=== PATIENT | female | born 1970 | race Asian ===

== ENCOUNTER 2022-02-26 22:19 | Emergency (ER) | payer MEDICAID, OTHER, SELFPAY ==
[2022-02-26 22:30] VITALS: BP 149/64; PULSE 76; RESP 18; TEMP 36.6; O2SAT 97; BMI 41.1
[2022-02-26 22:59] LABS: MANUAL DIFF FLAG NO
[2022-02-26 23:02] LABS: Basophils Percent Auto 0.2 % (0-2); Eosinophils Absolute Auto 0.2 X10*3/uL (0.0-0.4); Eosinophils Percent Auto 1.5 % (0-4); Hemoglobin 10.5 g/dl (12.0-16.0); Imm Gran Abs Auto 0.06 X10*3/uL (0.00-0.03); Imm Gran Pct Auto 0.5 % (0.0-0.4); Lymphocytes Absolute Auto 4.5 X10*3/uL (1.2-4.9); Lymphocytes Percent Auto 36.3 % (20-40); Mean Corpuscular HGB Conc 30.9 g/dl (31.0-35.0); Mean Corpuscular Hemoglobin 24.6 pg (27.0-33.0); Mean Corpuscular Volume 79.6 fL (80.0-98.0); Mean Platelet Volume 10.9 fL (9.4-12.3); Monocytes Absolute Auto 0.7 X10*3/uL (0.1-1.2); Neutrophils Absolute Auto 6.8 x10*3/uL (2.0-8.3); Neutrophils Percent Auto 55.5 % (45-73); Platelet Count 276 X10*3/uL (160-400); Red Blood Count 4.27 X10*6/uL (4.20-5.50); White Blood Count 12.3 X10*3/uL (4.8-10.8)
[2022-02-26 23:11] LABS: Appearance Urine Clear; Color Urine Yellow; Glucose Urine UA >=1000 mg/dL (Negative); Leukocyte Esterase Urine Negative (Negative); Nitrite Urine Negative (Negative); Specific Gravity - Urine 1.025 (1.005-1.025); UMIC TRIGGER UACC YES; Urine Blood Negative (Negative); Urine Ketones Negative (Negative); Urine Protein Negative (Neg-Trace)
[2022-02-26 23:14] LABS: Bacteria Urine None Seen (None Seen); Hyaline Casts Urine 0-2 /LPF (0-2); RBC Urine 0-2 /HPF (0-2); Squamous Epithelial Cell Urine 0-2 /HPF (0-2); WBC Urine 0-5 /HPF (0-5)
[2022-02-26 23:17] LABS: UPreg QC Valid YES; Urine Pregnancy NEGATIVE (NEGATIVE)
--- NOTE | 2022-02-27 00:25 | ED_ITS ---
HPI - Female Genitourinary General Chief complaint: Urogenital-Female Stated complaint: fever, urinating frequently, vomit, pain in arm/le Time Seen by Provider: 02/27/22 00:07 Source: family (Son) Mode of arrival: ambulatory Limitations: no limitations History of Present Illness HPI Narrative: Patient comes to the emergency room complaining of urinary frequency. Patient moved from [facility] 1 month ago, her Maltese is very limited, request her son interprets. The son explains that the patient has had urinary frequency for 2 weeks. Patient has not seen any blood in the urine. Patient also complaining of a painful, numbness sensation in her fingers and toes. Patient has history of diabetes. According to the son, the patient brought all of her medications from [facility] and has enough until she is seen by her primary care physician in 1 month. Also, patient complaining that for the last week she has been unable to sleep, and does not feel well constantly from being up all night Related Data Previous Rx's Medication Instructions Recorded gabapentin 100 mg capsule 100 mg PO BID #60 caps 02/27/22 ondansetron HCl 4 mg tablet 4 mg PO Q6H PRN nausea and 02/27/22 vomiting #14 tabs quetiapine 25 mg tablet 25 mg PO BEDTIME #14 tabs 02/27/22 Allergies Allergy/AdvReac Type Severity Reaction Status Date / Time No Known Allergies Allergy Verified 02/26/22 22:30 Review of Systems Review of Systems: Constitutional : No Weight loss, No Fever, No Chills, No Night Sweats, No Fatigue, No Malaise ENT/Mouth : No Hearing loss, No Ear Pain, No Nasal Congestion, No Sinus Pain, No Hoarseness, No sore throat, No Rhinorrhea, No Swallowing Difficulty Eyes: No Eye Pain, No Swelling, No Redness, No Foreign Body, No Discharge, No Vision Changes Cardiovascular : No Chest Pain, No SOB, No Dyspnea on Exertion, No Orthopnea, No Edema, No Palpitations Respiratory : No Cough, No Sputum, No Wheezing, No Smoke Exposure, No Dyspnea Gastrointestinal : No Nausea, No Vomiting, No Diarrhea, No Constipation, No abdominal Pain, No Hematochezia, No Melena Genitourinary : no irregular bleeding, No Dysuria, complaining of Urinary Frequency, No Hematuria, No Urinary Incontinence, No Urgency, No Flank Pain, No Urinary Flow Changes, No Hesitancy Musculoskeletal : No joint pain, No Myalgias, No Joint Swelling Skin : No Skin Lesions, No rash Neuro : No Weakness, No Numbness, complaining neuropathy in the tips of her fingers and toes, No Loss of Consciousness, No Dizziness, No Headache Psych : No Anxiety/Panic, No Depression, No SI/HI/AH/VH, No Social Issues, Heme/Lymph: No Bruising, No Bleeding,No Lymphadenopathy Endocrine : No Polyuria, No Polydipsia, No Temperature Intolerance FORMERLY [facility], [facility]–1983 Past Medical History Medical History (Updated 02/27/22 @ 01:43 by Candace Cabello MD) Type 2 diabetes mellitus Social History Social History Advance Directives: No Physical Exam Vital Signs: Vital Signs: Last Vital Signs Temp 98.4 F 02/27/22 01:02 Pulse 75 02/27/22 01:02 Resp 18 02/27/22 01:02 BP 149/65 H 02/27/22 01:02 Pulse Ox 100 02/27/22 01:02 O2 Del Method 02/27/22 01:02 BMI result Body Mass Index 41.1 Const: Other: Appearance: Alert. Oriented X3. No acute distress. Eyes: Pupils equal, round and reactive to light. ENT: Pharynx normal. Neck: Normal inspection. Neck supple. No lymph nodes noted. No crepitus CVS: Normal heart rate and rhythm. Pulses normal. Normal S1 and S2 Respiratory: No respiratory distress. Breath sounds normal. No Wheezing. No rales Abdomen: Soft and nontender. No rigidity. No distention. Skin: Skin warm and dry. Normal skin color. Normal skin turgor. Extremities: No lower extremity edema. No Lacerations. No Rash Neuro: Oriented X 3. No motor deficit. No sensory deficit. Moving all extremities. No slurred speech. CN 2 through 12 grossly intact Psych: calm, cooperative, normal affect Course Course Course Narrative: -patient is giving IV fluids, Zofran -glucose point of care and chemistry pending -patient's glucose is well controlled. According to the son, they have enough medications to last her until seen by her primary care physician. -patient will be given a prescription for gabapentin for neuropathy, Zofran for the vomiting, on a low-dose Medications Administered Discontinued Medications Generic Name Dose Route Start Last Admin Trade Name Freq PRN Reason Stop Dose Admin Sodium Chloride 1,000 mls @ 999 mls/hr 02/27/22 00:25 02/27/22 00:49 Ns IVCONT 02/27/22 01:25 999 mls/hr .Q1H1M ONE Administration Ondansetron HCl 4 mg 02/27/22 00:32 02/27/22 00:52 Ondansetron Hcl 4 Mg/2 Ml Vial IVPUSH 02/27/22 00:33 4 mg ONCE ONE Administration Medical Decision Making Differential Diagnosis Differential Diagnoses: The differential diagnosis associated with the presentation includes (Hyperglycemia, UTI) Lab Data [facility] Lab Attestation statement: I reviewed the patient's lab results. 02/26/22 22:54 Labs: Lab Results 02/26/22 02/26/22 02/26/22 Range/Units 22:51 22:51 22:54 WBC 12.3 H (4.8-10.8) X10*3/uL RBC 4.27 (4.20-5.50) X10*6/uL Hgb 10.5 L (12.0-16.0) g/dl Hct 34.0 L (37.0-47.0) % MCV 79.6 L (80.0-98.0) fL MCH 24.6 L (27.0-33.0) pg MCHC 30.9 L (31.0-35.0) g/dl RDW 15.0 (11.0-16.0) % Plt Count 276 (160-400) X10*3/uL MPV 10.9 (9.4-12.3) fL Immature Gran % (Auto) 0.5 H (0.0-0.4) % Neut % (Auto) 55.5 (45-73) % Lymph % (Auto) 36.3 (20-40) % Stark % (Auto) 6.0 (2-11) % Eos % (Auto) 1.5 (0-4) % Baso % (Auto) 0.2 (0-2) % Lymph # (Auto) 4.5 (1.2-4.9) X10*3/uL Stark # (Auto) 0.7 (0.1-1.2) X10*3/uL Eos # (Auto) 0.2 (0.0-0.4) X10*3/uL Baso # (Auto) 0.0 (0.0-0.2) X10*3/uL Abs Immat Gran (auto) 0.06 H (0.00-0.03) X10*3/uL Absolute Neuts (auto) 6.8 (2.0-8.3) x10*3/uL Absolute Nucleated RBC 0.000 (0.0-0.012) X10*3/uL Nucleated RBC % (auto) 0.0 (0.0-0.2) /100WBC Sodium (135-145) mmol/L Potassium (3.3-5.1) mmol/L Chloride (96-108) mmol/L Carbon Dioxide (22-29) mmol/L Anion Gap (12-20) BUN (9-16) mg/dL Creatinine (0.5-1.4) mg/dL Estim Creat Clear Calc Estimated GFR POC Glucose (60-115) mg/dL Random Glucose (60-115) mg/dL Calcium (8.4-10.2) mg/dL Urine Color Yellow Urine Appearance Clear Urine pH 6.0 (5.0-9.0) Ur Specific [place] 1.025 (1.005-1.025) Urine Protein Negative (Neg-Trace) mg/dL Urine Glucose (UA) >=1000 H (Negative) mg/dL Urine Ketones Negative (Negative) mg/dL Urine Blood Negative (Negative) Urine Nitrite Negative (Negative) Ur Leukocyte Esterase Negative (Negative) Urine RBC 0-2 (0-2) /HPF Urine WBC 0-5 (0-5) /HPF Ur Squamous Epith Cells 0-2 (0-2) /HPF Urine Bacteria None Seen (None Seen) Hyaline Casts 0-2 (0-2) /LPF Urine Test NEGATIVE (NEGATIVE) 02/27/22 02/27/22 Range/Units 00:46 00:54 WBC (4.8-10.8) X10*3/uL RBC (4.20-5.50) X10*6/uL Hgb (12.0-16.0) g/dl Hct (37.0-47.0) % MCV (80.0-98.0) fL MCH (27.0-33.0) pg MCHC (31.0-35.0) g/dl RDW (11.0-16.0) % Plt Count (160-400) X10*3/uL MPV (9.4-12.3) fL Immature Gran % (Auto) (0.0-0.4) % Neut % (Auto) (45-73) % Lymph % (Auto) (20-40) % Stark % (Auto) (2-11) % Eos % (Auto) (0-4) % Baso % (Auto) (0-2) % Lymph # (Auto) (1.2-4.9) X10*3/uL Stark # (Auto) (0.1-1.2) X10*3/uL Eos # (Auto) (0.0-0.4) X10*3/uL Baso # (Auto) (0.0-0.2) X10*3/uL Abs Immat Gran (auto) (0.00-0.03) X10*3/uL Absolute Neuts (auto) (2.0-8.3) x10*3/uL Absolute Nucleated RBC (0.0-0.012) X10*3/uL Nucleated RBC % (auto) (0.0-0.2) /100WBC Sodium 141 (135-145) mmol/L Potassium 4.0 (3.3-5.1) mmol/L Chloride 104 (96-108) mmol/L Carbon Dioxide 25 (22-29) mmol/L Anion Gap 16 (12-20) BUN 14 (9-16) mg/dL Creatinine 0.80 (0.5-1.4) mg/dL Estim Creat Clear Calc 68.9 Estimated GFR > 60 POC Glucose 102 (60-115) mg/dL Random Glucose 102 (60-115) mg/dL Calcium 10.3 H (8.4-10.2) mg/dL Urine Color Urine Appearance Urine pH (5.0-9.0) Ur Specific [place] (1.005-1.025) Urine Protein (Neg-Trace) mg/dL Urine Glucose (UA) (Negative) mg/dL Urine Ketones (Negative) mg/dL Urine Blood (Negative) Urine Nitrite (Negative) Ur Leukocyte Esterase (Negative) Urine RBC (0-2) /HPF Urine WBC (0-5) /HPF Ur Squamous Epith Cells (0-2) /HPF Urine Bacteria (None Seen) Hyaline Casts (0-2) /LPF Urine Test (NEGATIVE) Discharge Plan Discharge Clinical Impression: Frequent urination, Insomnia, Nausea & vomiting, Neuropathy Patient Disposition: Home, Self-Care Instructions: Acute Nausea and Vomiting (ED), Insomnia (ED) Additional Instructions: Please follow-up with your primary care physician tomorrow. If you have any worsening or new symptoms, please return to the emergency room or call 911 Prescriptions: New ondansetron HCl 4 mg tablet 4 mg PO Q6H PRN (Reason: nausea and vomiting) Qty: 14 0RF gabapentin 100 mg capsule 100 mg PO BID Qty: 60 0RF quetiapine 25 mg tablet 25 mg PO BEDTIME Qty: 14 0RF
[2022-02-27] MEDS: 0.9 % Sodium Chloride 1,000 ML 999 ML IVCONT (00:49)
[2022-02-27] MEDS: ondansetron HCL 4 MG/2 ML VIAL IVPUSH (00:52)
[2022-02-27 00:59] LABS: Glucose, Whole Blood 102 mg/dL (60-115)
[2022-02-27 01:02] VITALS: BP 149/65; PULSE 75; RESP 18; TEMP 36.9; O2SAT 100
[2022-02-27 01:08] LABS: Anion Gap 16 (12-20); Blood Urea Nitrogen 14 mg/dL (9-16); Calcium 10.3 mg/dL (8.4-10.2); Carbon Dioxide 25 mmol/L (22-29); Chloride 104 mmol/L (96-108); Creatinine Clr Calc Pharmacy 68.9; Estimated Glomerular Filt Rate > 60; Glucose Random 102 mg/dL (60-115); Sodium 141 mmol/L (135-145)
== END 2022-02-27 02:22 | disposition home or self-care (01) ==
PROVIDERS: Emergency Provider Emergency Medicine; PCP Internal Medicine
DX: R50.9 Fever, unspecified (principal); R35.0 Frequency of micturition; G47.00 Insomnia, unspecified; G62.9 Polyneuropathy, unspecified; R11.2 Nausea with vomiting, unspecified; Z79.899 Other long term (current) drug therapy
CPT/HCPCS: 36415; 80048; 81001; 81003; 81025; 82947; 85025; 96374; 99283; 99284; J2405

== ENCOUNTER 2022-03-18 20:32 | Emergency (ER) | payer OTHER, SELFPAY ==
--- NOTE | ~2022-03-18 | CT_ITS ---
EXAMINATION: CT ABDOMEN AND PELVIS WITH CONTRAST CLINICAL INFORMATION: Nausea, vomiting, diarrhea COMPARISON: None TECHNIQUE: Multidetector volumetric images were obtained from the superior aspect of the liver through the pubic symphysis following administration 85 mL of Omnipaque 350 intravenous contrast. Sagittal and coronal reformatted images were obtained on the technologist's workstation. Oral contrast: No This CT examination was performed using dose optimization techniques as appropriate, variously including the following: *Automated exposure control *Adjustment of mA and/or kV according to patient size (this includes techniques or standardized protocols for targeted exams where dose is matched to indication/reason for exam; i.e. extremities or head) *Use of iterative reconstruction technique DLP: 608 mGy-cm FINDINGS: LUNG BASES: The visualized lung bases are unremarkable. LIVER, GALLBLADDER, AND BILIARY TREE: The liver is mildly enlarged. No focal hepatic lesion or biliary ductal dilatation is present. Gallbladder appears somewhat contracted. PANCREAS: Unremarkable. SPLEEN: Unremarkable. ADRENAL GLANDS: Right adrenal gland is unremarkable. Tiny calcification in the left adrenal gland could reflect sequelae of old hemorrhage or infection. KIDNEYS AND URETERS: Bilateral nephrograms are symmetric. No hydronephrosis or obstructing calculus identified. BLADDER: Unremarkable. GASTROINTESTINAL TRACT: No evidence of bowel obstruction or significant wall thickening. Moderate volume of stool is present. The appendix is not identified. No free fluid or free air is seen. ABDOMINAL WALL: No significant hernia is appreciated. LYMPH NODES: Normal. VASCULAR: Unremarkable. PELVIC VISCERA: Status post hysterectomy. OSSEOUS STRUCTURES: Fusion hardware is present posteriorly at L4-S1. Of note, the right interconnecting leonel appears slipped inferiorly, with the superior portion of the leonel at the level of S1; this is age-indeterminate. There is grade 1 anterolisthesis of L4 on L5. CT/CT abdomen pelvis w IV con IMPRESSION: 1. No acute findings identified in the abdomen/pelvis. 2. Postoperative changes from L4-S1 fusion. Of note, the right interconnecting leonel appears slipped inferiorly, with the superior portion of the leonel at the level of S1; this is age-indeterminate.
[2022-03-18 22:14] VITALS: BP 150/62; PULSE 71; RESP 16; TEMP 36.2; O2SAT 98; BMI 35.2
[2022-03-18 22:55] LABS: MANUAL DIFF FLAG NO
[2022-03-18 22:57] LABS: Basophils Percent Auto 0.3 % (0-2); Eosinophils Absolute Auto 0.2 X10*3/uL (0.0-0.4); Eosinophils Percent Auto 1.5 % (0-4); Hematocrit 34.8 % (37.0-47.0); Hemoglobin 10.7 g/dl (12.0-16.0); Imm Gran Abs Auto 0.04 X10*3/uL (0.00-0.03); Imm Gran Pct Auto 0.3 % (0.0-0.4); Lymphocytes Absolute Auto 4.7 X10*3/uL (1.2-4.9); Lymphocytes Percent Auto 38.3 % (20-40); Mean Corpuscular HGB Conc 30.7 g/dl (31.0-35.0); Mean Corpuscular Hemoglobin 24.4 pg (27.0-33.0); Mean Corpuscular Volume 79.5 fL (80.0-98.0); Mean Platelet Volume 10.8 fL (9.4-12.3); Monocytes Absolute Auto 0.8 X10*3/uL (0.1-1.2); Monocytes Percent Auto 6.5 % (2-11); Neutrophils Absolute Auto 6.5 x10*3/uL (2.0-8.3); Neutrophils Percent Auto 53.1 % (45-73); Platelet Count 251 X10*3/uL (160-400); Red Blood Count 4.38 X10*6/uL (4.20-5.50); White Blood Count 12.3 X10*3/uL (4.8-10.8)
[2022-03-18 22:58] LABS: Appearance Urine Clear; Color Urine Yellow; Glucose Urine UA >=1000 mg/dL (Negative); Leukocyte Esterase Urine Negative (Negative); Nitrite Urine Negative (Negative); PH 6.5 (5.0-9.0); UMIC TRIGGER UACC YES; Urine Blood Negative (Negative); Urine Ketones Negative (Negative); Urine Protein Negative (Neg-Trace)
[2022-03-18 23:01] LABS: Bacteria Urine None Seen (None Seen); Hyaline Casts Urine 0-2 /LPF (0-2); RBC Urine 0-2 /HPF (0-2); Squamous Epithelial Cell Urine 0-2 /HPF (0-2); WBC Urine 0-5 /HPF (0-5)
[2022-03-18 23:18] LABS: Alanine Aminotransferase 21 U/L (0-31); Albumin Level 4.4 g/dL (3.5-5.0); Alkaline Phosphatase 96 U/L (39-117); Anion Gap 13 (12-20); Aspartate Amino Transferase 19 U/L (5-31); Bilirubin Direct < 0.2 mg/dL (0.0-0.5); Bilirubin Total 0.2 mg/dL (0.0-1.0); Blood Urea Nitrogen 7 mg/dL (9-16); Calcium 9.9 mg/dL (8.4-10.2); Carbon Dioxide 27 mmol/L (22-29); Chloride 102 mmol/L (96-108); Creatinine Clr Calc Pharmacy 86.3; Estimated Glomerular Filt Rate > 60; Glucose Random 238 mg/dL (60-115); Potassium 4.6 mmol/L (3.3-5.1); Sodium 137 mmol/L (135-145); Total Protein 7.5 g/dL (6.5-8.0)
[2022-03-19 00:50] VITALS: BP 139/68; PULSE 71; RESP 20; TEMP 36.8; O2SAT 99
--- NOTE | 2022-03-19 00:54 | ED.NAVMDI ---
HPI - Nausea/Vomiting/Diarrhea General Chief complaint: Nausea/Vomiting/Diarrhea Stated complaint: vomiting/cant eat Time Seen by Provider: 03/19/22 00:27 History of Present Illness HPI Narrative: Patient is a 51-year-old female with a history of diabetes. Presented today with having nausea that is been ongoing for the last month. Diffuse abdominal pain. Positive previous history of abdominal surgery. Patient had appendectomy, hysterectomy, oophorectomy, back surgery done in [facility]. There is no vomiting. There is no diarrhea. Patient has been in [facility] for about a month. There is no recent antibiotics. No new medication. Patient has been compliant with her diabetes medication. She is vaccinated for COVID Related Data Previous Rx's Medication Instructions Recorded gabapentin 100 mg capsule 100 mg PO BID #60 caps 02/27/22 ondansetron HCl 4 mg tablet 4 mg PO Q6H PRN nausea and 02/27/22 vomiting #14 tabs quetiapine 25 mg tablet 25 mg PO BEDTIME #14 tabs 02/27/22 ondansetron 4 mg disintegrating 4 mg PO TID PRN nausea and 03/19/22 tablet vomiting 5 days #10 tabs Allergies Allergy/AdvReac Type Severity Reaction Status Date / Time No Known Allergies Allergy Verified 02/26/22 22:30 Review of Systems Review of Systems: No fever no chills positive nausea, vomiting Yes all other systems are reviewed and are negative [facility] Past Medical History Attestation statement: The following information was validated with the patient. Medical History Type 2 diabetes mellitus Social History Social History Advance Directives: No Advance Directives Information Provided: Yes Physical Exam Vital Signs: Vital Signs: Last Vital Signs Temp 98.3 F 03/19/22 00:50 Pulse 71 03/19/22 00:50 Resp 20 03/19/22 00:50 BP 139/68 03/19/22 00:50 Pulse Ox 99 03/19/22 00:50 O2 Del Method 03/19/22 00:50 BMI result Body Mass Index 35.2 Appearance: Alert. Oriented X3. No acute distress. Eyes: Pupils equal, round and reactive to light. ENT: Pharynx normal. Neck: Normal inspection. Neck supple. No lymph nodes noted. No crepitus CVS: Normal heart rate and rhythm. Pulses normal. Normal S1 and S2 Respiratory: No respiratory distress. Breath sounds normal. No Wheezing. No rales Abdomen: Soft and nontender. No rigidity. No distention. good BS x4 Skin: Skin warm and dry. Normal skin color. Normal skin turgor. Extremities: No lower extremity edema. Neurovascular intact to all extremities. No Lacerations. No Rash Neuro: Oriented X 3. No motor deficit. No sensory deficit. Moving all extermities. No slurred speech Medications Administered Discontinued Medications Generic Name Dose Route Start Last Admin Trade Name Freq PRN Reason Stop Dose Admin Iohexol 85 ml 03/19/22 01:36 03/19/22 01:37 Iohexol 350 Mg/Ml 100 Ml Infus..Btl IV 03/19/22 01:37 85 ml ONCE ONE Administration Ondansetron HCl 4 mg 03/19/22 00:46 03/19/22 02:17 Ondansetron Hcl 4 Mg/2 Ml Vial IVPUSH 03/19/22 00:47 4 mg ONCE ONE Administration Medical Decision Making Medical Decision Making [facility] Narrative: Patient complaining of abdominal pain that is fairly chronic in nature. Has previous abdominal surgery done in the past. CT scan of the abdomen pelvis showed no evidence of obstruction/abscess/perforation. White count slightly elevated but LFTs are normal. Lipase normal. No evidence for biliary disease no evidence for pancreatic disease. Patient's urine negative for any acute evidence of infection no evidence for UTI. This will discharge patient home. Close follow-up with patient's primary physician. Differential Diagnosis Differential Diagnoses: The differential diagnosis associated with the presentation includes Obstruction, abscess, perforation Lab Data [facility] Lab Attestation statement: I reviewed the patient's lab results. 03/18/22 22:50 03/18/22 22:50 Labs: Lab Results 03/18/22 03/18/22 03/18/22 Range/Units 22:50 22:50 22:50 WBC 12.3 H (4.8-10.8) X10*3/uL RBC 4.38 (4.20-5.50) X10*6/uL Hgb 10.7 L (12.0-16.0) g/dl Hct 34.8 L (37.0-47.0) % MCV 79.5 L (80.0-98.0) fL MCH 24.4 L (27.0-33.0) pg MCHC 30.7 L (31.0-35.0) g/dl RDW 15.0 (11.0-16.0) % Plt Count 251 (160-400) X10*3/uL MPV 10.8 (9.4-12.3) fL Immature Gran % (Auto) 0.3 (0.0-0.4) % Neut % (Auto) 53.1 (45-73) % Lymph % (Auto) 38.3 (20-40) % [place] % (Auto) 6.5 (2-11) % Eos % (Auto) 1.5 (0-4) % Baso % (Auto) 0.3 (0-2) % Lymph # (Auto) 4.7 (1.2-4.9) X10*3/uL [place] # (Auto) 0.8 (0.1-1.2) X10*3/uL Eos # (Auto) 0.2 (0.0-0.4) X10*3/uL Baso # (Auto) 0.0 (0.0-0.2) X10*3/uL Abs Immat Gran (auto) 0.04 H (0.00-0.03) X10*3/uL Absolute Neuts (auto) 6.5 (2.0-8.3) x10*3/uL Absolute Nucleated RBC 0.000 (0.0-0.012) X10*3/uL Nucleated RBC % (auto) 0.0 (0.0-0.2) /100WBC Sodium 137 (135-145) mmol/L Potassium 4.6 (3.3-5.1) mmol/L Chloride 102 (96-108) mmol/L Carbon Dioxide 27 (22-29) mmol/L Anion Gap 13 (12-20) BUN 7 L (9-16) mg/dL Creatinine 0.73 (0.5-1.4) mg/dL Estim Creat Clear Calc 86.3 Estimated GFR > 60 Random Glucose 238 H (60-115) mg/dL Calcium 9.9 (8.4-10.2) mg/dL Total Bilirubin 0.2 (0.0-1.0) mg/dL Direct Bilirubin < 0.2 (0.0-0.5) mg/dL AST 19 (5-31) U/L ALT 21 (0-31) U/L Alkaline Phosphatase 96 (39-117) U/L Total Protein 7.5 (6.5-8.0) g/dL Albumin 4.4 (3.5-5.0) g/dL Urine Color Yellow Urine Appearance Clear Urine pH 6.5 (5.0-9.0) Ur Specific [place] 1.020 (1.005-1.025) Urine Protein Negative (Neg-Trace) mg/dL Urine Glucose (UA) >=1000 H (Negative) mg/dL Urine Ketones Negative (Negative) mg/dL Urine Blood Negative (Negative) Urine Nitrite Negative (Negative) Ur Leukocyte Esterase Negative (Negative) Urine RBC 0-2 (0-2) /HPF Urine WBC 0-5 (0-5) /HPF Ur Squamous Epith Cells 0-2 (0-2) /HPF Urine Bacteria None Seen (None Seen) Hyaline Casts 0-2 (0-2) /LPF Radiology Impression Discussion of test interpretation with radiology: I have reviewed the radiologist's reading. Independent Historian Patient's son Prescription Management Zofran for nausea Discharge Plan Discharge Clinical Impression: Vomiting Patient Disposition: Home, Self-Care Instructions: Acute Nausea and Vomiting (ED) Prescriptions: New ondansetron 4 mg tablet,disintegrating 4 mg PO TID PRN (Reason: nausea and vomiting) 5 Days Qty: 10 0RF No Action ondansetron HCl 4 mg tablet 4 mg PO Q6H PRN (Reason: nausea and vomiting) Qty: 14 0RF gabapentin 100 mg capsule 100 mg PO BID Qty: 60 0RF quetiapine 25 mg tablet 25 mg PO BEDTIME Qty: 14 0RF Referrals: Anson Peterson MD [Primary Care Provider] -
[2022-03-19] MEDS: iohexoL 350 MG/ML 100 ML INFUS..BTL 85 ML IV (01:37)
[2022-03-19] MEDS: ondansetron HCL 4 MG/2 ML VIAL IVPUSH (02:17)
== END 2022-03-19 03:19 | disposition home or self-care (01) ==
PROVIDERS: Emergency Provider Emergency Medicine Emergency Medical Services; PCP Internal Medicine
DX: R11.2 Nausea with vomiting, unspecified (principal); E11.9 Type 2 diabetes mellitus without complications; R19.7 Diarrhea, unspecified; Z79.899 Other long term (current) drug therapy
CPT/HCPCS: 36415; 74177; 80053; 81001; 82248; 85025; 96374; 99283; 99284; J2405; Q9967

== ENCOUNTER 2022-03-22 16:55 | Outpatient (REF) | payer OTHER, SELFPAY ==
--- NOTE | ~2022-03-22 | XR_ITS ---
EXAMINATION: XR CHEST 2 VIEWS CLINICAL INFORMATION: Difficulty swallowing; question lesion. COMPARISON: None. TECHNIQUE: Frontal and lateral views of the chest were obtained. FINDINGS: The heart, great vessels, pulmonary vasculature and mediastinum are normal. The lungs show no focal infiltrate, effusion or pneumothorax. There is no acute osseous abnormality. XR/XR chest 2V IMPRESSION: No active cardiopulmonary disease.
[2022-03-22 17:10] LABS: MANUAL DIFF FLAG NO
[2022-03-22 17:39] LABS: Basophils Percent Auto 0.2 % (0-2); Eosinophils Absolute Auto 0.2 X10*3/uL (0.0-0.4); Eosinophils Percent Auto 1.1 % (0-4); Hematocrit 35.3 % (37.0-47.0); Hemoglobin 10.9 g/dl (12.0-16.0); Imm Gran Abs Auto 0.07 X10*3/uL (0.00-0.03); Imm Gran Pct Auto 0.5 % (0.0-0.4); Lymphocytes Absolute Auto 3.9 X10*3/uL (1.2-4.9); Lymphocytes Percent Auto 29.5 % (20-40); Mean Corpuscular HGB Conc 30.9 g/dl (31.0-35.0); Mean Corpuscular Hemoglobin 24.8 pg (27.0-33.0); Mean Corpuscular Volume 80.2 fL (80.0-98.0); Mean Platelet Volume 11.8 fL (9.4-12.3); Monocytes Absolute Auto 0.8 X10*3/uL (0.1-1.2); Monocytes Percent Auto 5.9 % (2-11); Neutrophils Absolute Auto 8.3 x10*3/uL (2.0-8.3); Neutrophils Percent Auto 62.8 % (45-73); Platelet Count 274 X10*3/uL (160-400); Red Cell Distribution Width 14.9 % (11.0-16.0); White Blood Count 13.2 X10*3/uL (4.8-10.8)
[2022-03-22 17:40] LABS: Appearance Urine Clear; Color Urine Yellow; Glucose Urine UA >=1000 mg/dL (Negative); Leukocyte Esterase Urine Negative (Negative); Nitrite Urine Negative (Negative); PH 5.5 (5.0-9.0); Specific Gravity - Urine >= 1.030 (1.005-1.025); UMIC TRIGGER UA YES; Urine Blood Negative (Negative); Urine Ketones Trace mg/dL (Negative); Urine Protein 30 (1+) mg/dL (Neg-Trace)
[2022-03-22 17:44] LABS: Estimated Average Glucose 203 mg/dL; Hemoglobin A1c % 8.7 %
[2022-03-22 17:47] LABS: Bacteria Urine None Seen (None Seen); Hyaline Casts Urine 0-2 /LPF (0-2); RBC Urine 0-2 /HPF (0-2); Squamous Epithelial Cell Urine 0-2 /HPF (0-2); WBC Urine 0-5 /HPF (0-5)
[2022-03-22 18:04] LABS: Alanine Aminotransferase 21 U/L (0-31); Albumin Level 4.4 g/dL (3.5-5.0); Alkaline Phosphatase 106 U/L (39-117); Anion Gap 17 (12-20); Aspartate Amino Transferase 20 U/L (5-31); Bilirubin Total 0.2 mg/dL (0.0-1.0); Blood Urea Nitrogen 14 mg/dL (9-16); C Reactive Protein 0.47 mg/dL (< or = 0.50); Calcium 9.9 mg/dL (8.4-10.2); Carbon Dioxide 24 mmol/L (22-29); Chloride 105 mmol/L (96-108); Estimated Glomerular Filt Rate > 60; Glucose Random 156 mg/dL (60-115); Lipase 30 U/L (8-78); Potassium 4.7 mmol/L (3.3-5.1); Sodium 141 mmol/L (135-145); Total Protein 7.8 g/dL (6.5-8.0)
[2022-03-22 18:22] LABS: Free T4 (Free Thyroxine) 0.92 ng/dL (0.71-1.85)
[2022-03-22 18:36] LABS: Thyroid Stimulating Hormone 3.03 uIU/mL (0.32-4.0)
== END 2022-03-22 16:56 | disposition home or self-care (01) ==
LOC: HO.LAB 16:55
PROVIDERS: PCP Internal Medicine; Visit Provider Internal Medicine
DX: E11.9 Type 2 diabetes mellitus without complications (principal); I25.10 Atherosclerotic heart disease of native coronary artery without angina pectoris; I10 Essential (primary) hypertension; R13.10 Dysphagia, unspecified
CPT/HCPCS: 36415; 71046; 80053; 81001; 83036; 83690; 84439; 84443; 85025; 86140; 87086; 87147

== ENCOUNTER 2022-03-26 11:42 | Outpatient (REF) | payer OTHER, SELFPAY ==
--- NOTE | ~2022-03-26 | US_ITS ---
EXAMINATION: US ABDOMEN COMPLETE CLINICAL INFORMATION: Nausea, abdominal pain. COMPARISON: CT abdomen and pelvis with contrast 03/19/2022. TECHNIQUE: Real-time imaging of the abdominal viscera. FINDINGS: PANCREAS: Obscured by overlying bowel gas ABDOMINAL AORTA: The proximal, mid, and distal segments are normal in caliber. INFERIOR VENA CAVA: Visualized portions are normal. LIVER: Liver is enlarged measuring 17.4 cm. The liver contour is normal. Diffuse increased echogenicity of the liver parenchyma. No focal hepatic lesion. There is no intrahepatic biliary duct dilatation seen. GALLBLADDER: Normal. The gallbladder is physiologically distended without evidence of stones, sludge, polyps, wall thickening or pericholecystic fluid. COMMON BILE DUCT: Normal in caliber measuring 0.2 cm in diameter. RIGHT KIDNEY: Normal. No hydronephrosis. No renal calculi or focal parenchymal lesions. The kidney measures 12.8 cm in maximum dimension. LEFT KIDNEY: Normal. No hydronephrosis. No renal calculi or focal parenchymal lesions. The kidney measures 11.5 cm in maximum dimension. SPLEEN: Normal. The spleen measures 10.6 cm in maximum dimension. FREE FLUID: None. US/US abdomen complete IMPRESSION: Hepatomegaly with diffuse increased echogenicity of the liver parenchyma likely reflects hepatic steatosis.
== END 2022-03-26 11:43 | disposition home or self-care (01) ==
LOC: HO.US 11:42
PROVIDERS: PCP Internal Medicine; Visit Provider Internal Medicine
DX: R11.0 Nausea (principal)
CPT/HCPCS: 76700

== ENCOUNTER 2022-04-04 15:06 | Outpatient (REF) | payer OTHER, SELFPAY ==
--- NOTE | ~2022-04-04 | XR_ITS ---
EXAMINATION: XR LUMBOSACRAL SPINE CLINICAL INFORMATION: Back pain COMPARISON: Previous CT of the abdomen and pelvis March 2022 TECHNIQUE: Three views of the lumbosacral spine. FINDINGS: There is posterior fusion hardware with rods and interpedicular screws from L4 to S1. There is a 1 cm anterior subluxation of L4 with respect L5. This measured 7 mm on previous abdominal and pelvic CT 03/19/2022.. Bone alignment is otherwise normal. No fracture or dislocation. Question interrupted orthopedic hardware posteriorly at L5. Disc space narrowing at L4-L5. Lower lumbar spine facet arthritis. XR/XR lumbar spine 2-3V IMPRESSION: Postsurgical change from L4 to S1. 1 cm anterior subluxation of L4 with respect L5. Question interrupted hardware posteriorly at L5 similar to previous CT March 2022.
--- NOTE | ~2022-04-04 | XR_ITS ---
EXAMINATION: XR CERVICAL SPINE CLINICAL INFORMATION: Pain COMPARISON: None TECHNIQUE: 6 views of the cervical spine, inclusive of flexion and extension views, were obtained. FINDINGS: Bone alignment is normal. No fracture or disc location. Degenerative spondylosis from C4-C5 to C6-C7. Normal disc spaces. Neural foramen are patent. Prevertebral soft tissues are normal. XR/XR cervical spine min 6V IMPRESSION: Mild degenerative spondylosis from C4-C5 to C6-C7.
== END 2022-04-04 15:07 | disposition home or self-care (01) ==
LOC: HO.XRAY 15:06
PROVIDERS: PCP Internal Medicine; Visit Provider Internal Medicine
DX: M54.2 Cervicalgia (principal); M54.9 Dorsalgia, unspecified
CPT/HCPCS: 72052; 72100

== ENCOUNTER 2022-04-12 10:29 | Outpatient (REF) | payer OTHER, SELFPAY ==
--- NOTE | ~2022-04-12 | FL_ITS ---
EXAMINATION: XR FLUOROSCOPY UPPER GI WITH AIR CLINICAL INFORMATION: Nausea and reduced appetite. COMPARISON: None TECHNIQUE: Routine upper GI air-contrast study was performed in upright and lying position. FINDINGS: Following oral administration of thick barium and effervescent granules there is normal propagation of bolus from the oral cavity through the pharynx, esophagus into stomach without any evidence of obstruction, narrowing or stricture. On placing patient supine and prone lying, the course, caliber and the peristalsis of the stomach, duodenal bulb and the CBD is normal. The mucosal pattern of stomach and the duodenum is normal. There is mild gastroesophageal reflux without hiatal hernia. FLUOROSCOPY TIME: 2.8 minutes DOSE AREA PRODUCT: 59.633 uGy-m2 (microgray-meter squared) FL/FL upper GI w air IMPRESSION: Mild gastroesophageal reflux. Otherwise unremarkable upper GI air-contrast exam.
== END 2022-04-12 10:30 | disposition home or self-care (01) ==
LOC: HO.XRAY 10:29
PROVIDERS: PCP Internal Medicine; Visit Provider Internal Medicine
DX: R11.0 Nausea (principal)
CPT/HCPCS: 74246

== ENCOUNTER 2022-05-08 18:29 | Outpatient (REF) | payer OTHER, SELFPAY ==
--- NOTE | ~2022-05-08 | MR_ITS ---
EXAMINATION: MR LUMBAR SPINE WITHOUT CONTRAST CLINICAL INFORMATION: Subluxation of L4 on L5. History of lower back surgery. Stability. COMPARISON: Lumbar spine radiographs from 04/04/2022. TECHNIQUE: MRI of the lumbar spine was obtained using routine sequences without contrast. FINDINGS: Instrumented posterior fusion of L4-S1 with bilateral paired interpedicular screws. There is grade 2 anterolisthesis of L4 on L5 (similar in appearance to radiographs from 04/04/2022). Otherwise, normal anatomic alignment. Advanced degenerative disc disease at L4-L5. Mild to moderate degenerative disc disease at L2-L3. Mild disc desiccation at all additional lumbar levels. Associated mixed Modic type discogenic endplate changes including mild Modic type I discogenic edema at L4-L5. No additional suspicious marrow edema. The vertebral body heights are largely maintained. The conus medullaris terminates at the level of L1. The distal spinal cord is normal in appearance. Laminectomy changes at L4-L5. No significant abnormalities of the paraspinal musculature. Limited evaluation of the intra-abdominal structures without significant abnormalities. The abdominal aorta is of normal contour and caliber. AXIAL SPINAL LEVELS: L1-L2: Mild diffuse disc bulge. There is mild bilateral facet joint arthropathy. There is no neural foraminal stenosis. There is no spinal canal stenosis. L2-L3: Mild diffuse disc bulge. There is mild bilateral facet joint arthropathy. There is mild bilateral neural foraminal stenosis. There is no spinal canal stenosis. L3-L4: Shallow diffuse disc bulge. There is mild bilateral facet joint arthropathy. There is mild to moderate bilateral neural foraminal stenosis. There is stenosis of the subarticular zones with no overt spinal canal stenosis centrally. L4-L5: Prominent diffuse disc bulge exacerbated by uncovering from anterolisthesis. There is moderate bilateral facet joint arthropathy. There is severe right and moderate left neural foraminal stenosis. Posterior decompression. There is stenosis of the subarticular zones with no overt spinal canal stenosis centrally. L5-S1: Shallow diffuse disc bulge with superimposed right foraminal disc protrusion. There is moderate bilateral facet joint arthropathy. There is moderate right and mild left neural foraminal stenosis. Posterior decompression. There is no spinal canal stenosis. MR/MR lumbar spine wo con IMPRESSION: Instrumented posterior fusion of L4-S1 with laminectomy changes. Grade 2 anterolisthesis of L4 on L5 appears similar to radiographs from 04/04/2022. Otherwise, moderate multilevel degenerative spondyloarthropathy of the lumbar spine as described in detail above. Most notably, there are stenoses of the subarticular zones at L3-L4 and L4-L5. Moderate to severe neural foraminal stenoses from L3-S1. No overt spinal canal stenosis centrally.
== END 2022-05-08 18:30 | disposition home or self-care (01) ==
LOC: HO.MRI 18:29
PROVIDERS: PCP Internal Medicine; Visit Provider Internal Medicine
DX: S33.140A Subluxation of L4/L5 lumbar vertebra, initial encounter (principal); X58.XXXA Exposure to other specified factors, initial encounter; Y93.9 Activity, unspecified; Y92.9 Unspecified place or not applicable; Y99.9 Unspecified external cause status
CPT/HCPCS: 72148

== ENCOUNTER 2022-05-09 13:03 | Day surgery (SDC) | payer OTHER, SELFPAY ==
--- OUTSIDE RECORDS SUMMARY | 2022-05-09 13:05 | XMS_ITS ---
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 Name Role Phone Douglas Love Eulalio Unavailable PROBLEMS Type Condition ICD9-CM Code IKD84-GE Code Onset Dates Condition Status SNOMED Code Problem Epigastric pain R10.13 Active 42587568 Problem Nausea and vomiting, unspecified vomiting type R11.2 Active 48553098 ALLERGIES No Known Allergies ENCOUNTERS Encounter Location Date Diagnosis [facility] Outpatient [address] [place] [address] [id number] Apr, [facility] [address] [place] [phone] Apr, [facility] [address] [place] [phone] Apr, Nausea and vomiting, unspecified vomiting type R11.2 and Epigastric pain R10.13 IMMUNIZATIONS No Known Immunizations SOCIAL HISTORY Qualifiers Date Never Smoker REASON FOR REFERRAL FUNCTIONAL STATUS PLAN OF CARE Activity Details VITAL SIGNS Weight 175 lbs 2022-04-27 Height 63 in 2022-04-27 BMI 31.00 kg/m2 2022-04-27 Temperature 97.5 degrees Fahrenheit Blood pressure systolic 000 mm Hg Blood pressure diastolic 00 mm Hg 2022-04 MEDICATIONS Medication Instructions Dosage Frequency Start Date End Date Duration Status Ondansetron HCl 4 MG TAKE 1 TABLET BY MOUTH TWICE A DAY NEEDED 30 Active Omeprazole 40 MG Orally Once a day 1 capsule 30 minutes before morning meal 24h Apr, 30 day(s) Active NovoLIN 70/30 (70-30) 100 UNIT/ML INJECT 30 UNIT SUBCUTANEOUSLY TWICE A DAY 30 Active Omeprazole 20 MG TAKE 1 CAPSULE BY MOUTH EVERY DAY 90 Active predniSONE 20 MG TAKE 1 TABLET BY MOUTH EVERY DAY 6 Active metFORMIN HCl 850 MG TAKE 1 TABLET BY MOUTH TWICE A DAY 90 Active Bisoprolol Fumarate 5 MG TAKE 1 TABLET BY MOUTH EVERY DAY 60 Active RABEprazole Sodium 20 MG TAKE 1 TABLET BY MOUTH EVERY DAY 90 Active Repaglinide 1 MG TAKE 1 TABLET BY MOUTH THREE TIMES A DAY 90 Active Jardiance 10 MG TAKE 1 TABLET BY MOUTH EVERY DAY 90 Active Tradjenta 5 MG TAKE 1 TABLET BY MOUTH EVERY DAY 90 Active PROCEDURES Procedure Date Ordered Result Body Site PATIENT NOT ELIG D/T ACTIVE DX HTN April 27, 2022 Pt scrn tbco id as non user April 27, 2022 DOC MEDS VERIFIED W/PT OR RE April 27, 2022 COLORECTAL CA SCREEN DOC REV April 27, 2022 RESULTS No Results REASON FOR VISIT epigastric pain,nausea & vomiting, epigastric pain N/V, R/S TO SOONER PROCEDURE, patient presents today for VOMITING Insurance Providers Health Insurance Type Health Plan Insurance Address Health Plan Insurance Phone Health Plan Insurance Name Health Plan Coverage Dates Member ID Patient Relationship to Subscriber Patient Address Patient Phone Patient Name Patient Date of Subscriber ID Subscriber Name Subscriber Date of Group No eBillme Plan [address] [address] [facility] [id number] eBillme Plan self [facility] [id number] MED[place] OF [place] [address] [facility] [address] [place] OF [place] self [facility] [id number]
[2022-05-09 13:52] VITALS: BP 145/71; PULSE 69; RESP 18; TEMP 37.2; O2SAT 94; BMI 30.4
[2022-05-09 14:10] LABS: Glucose, Whole Blood 166 mg/dL (60-115)
--- NOTE | 2022-05-09 14:20 | MHC.SHP ---
Pre-Procedural Eval Section A Date of Service: 05/09/22 The patient is an INPATIENT: No Changes since office visit: No Cold of Flu in the past 2 weeks, No New Medical Problems, No Changes in Medication and No Patient answered all questions The History & Physical has been completed within 30 days and I have reviewed it.: Yes Section B Chief Complaint: epigastric pain ,Nausea with vomiting, unspecified Allergies: Allergies Allergy/AdvReac Type Severity Reaction Status Date / Time No Known Allergies Allergy Verified 02/26/22 22:30 Plan I have reviewed the history and physical and performed a pertinent physical examination on my patient. No changes have occurred unless specified. Time Spent With Patient Time: Total time managing care of this patient today ____ minutes.
[2022-05-09] MEDS: Lactated Ringers 1,000 ML 50 ML IVCONT (14:21)
--- NOTE | 2022-05-09 14:56 | P.CONAN_ITS ---
HPI - Anesthesia Eval Consult details Narrative: nv epigastric pain PMFSH Past Medical History Medical History (Updated 05/08/22 @ 14:37 by Elisha Terry, YOANA) Arthritis CAD (coronary artery disease) Fistula HTN (hypertension) Type 2 diabetes mellitus Family History Family history of problems with anesthesia: No Surgical History Surgical History (Updated 05/08/22 @ 14:37 by Elisha Terry RN) H/O hemorrhoidectomy History of appendectomy History of back surgery History of total abdominal hysterectomy History of Problems with Anesthesia: No Social History Social History Patient Tobacco Use Status: Never used Tobacco Use of substances other than those prescribed or required for medical reasons: No Are you DNR?: No Advance Directives: No Advance Directives Information Provided: Yes Meds Allergies Allergy/AdvReac Type Severity Reaction Status Date / Time No Known Allergies Allergy Verified 02/26/22 22:30 Active Medications: Current Medications Lactated Ringer's (Lr) 1,000 mls @ 50 mls/hr IVCONT .Q20H JASPAL Last Admin: 05/09/22 14:21 Dose: 50 mls/hr Home Medications Medication Instructions Recorded Confirmed Last Taken Type bisoprolol fumarate 5 mg tablet 5 mg PO DAILY 05/08/22 05/08/22 Unknown History cetirizine 10 mg tablet 10 mg PO DAILY 05/08/22 05/08/22 Unknown History clonazepam 0.5 mg tablet 0.5 mg PO BEDTIME PRN Anxiety 05/08/22 05/08/22 Unknown History clopidogrel 75 mg tablet 75 mg PO DAILY 05/08/22 05/08/22 Unknown History empagliflozin 10 mg tablet 10 mg PO DAILY 05/08/22 05/08/22 Unknown History (Jardiance) insulin human U-100 NPH-regulr 30 unit subcut BID 05/08/22 05/08/22 Unknown History 70-30 mix 100 unit/mL subcutaneous susp (Novolin 70/30 U-100 Insulin) linagliptin 5 mg tablet (Tradjenta) 5 mg PO DAILY 05/08/22 05/08/22 Unknown H istory metformin 850 mg tablet 850 mg PO BID 05/08/22 05/08/22 Unknown History metoclopramide HCl 10 mg tablet 10 mg PO Q6H PRN nausea 05/08/22 05/08/22 Unknown History omeprazole 40 mg capsule,delayed 40 mg PO QAM 05/08/22 05/08/22 Unknown History release ondansetron HCl 4 mg tablet 4 mg PO BID PRN Nausea 05/08/22 05/08/22 Unknown History prednisone 20 mg tablet 20 mg PO DAILY 05/08/22 05/08/22 Unknown History quetiapine 25 mg tablet 25 mg PO BEDTIME 05/08/22 05/08/22 Unknown History rabeprazole 20 mg tablet,delayed 20 mg PO DAILY 05/08/22 05/08/22 Unknown History release tacrolimus 0.1 % topical ointment topical BID PRN prn 05/08/22 Unknown History triamcinolone acetonide 0.1 % appl topical 05/08/22 05/08/22 Unknown History topical cream Exam Exam Date and Time: May 09, 2022 1456 Height,Weight and Vital Signs: Height 5 ft 3 in Weight 78 kg Last Vital Signs Temp 98.9 F 05/09/22 13:52 Pulse 69 05/09/22 13:52 Resp 18 05/09/22 13:52 BP 145/71 H 05/09/22 13:52 Pulse Ox 94 05/09/22 13:52 O2 Del Method Room Air 05/09/22 13:52 Pertinent Lab Results Pertinent Lab Results: Laboratory Tests 05/09/22 14:06 POC Glucose 166 H Airway Mallampati Class: II TM Dist: >3cm Neck ROM: Full Heart: rr Lungs: cta Assessment and Plan Assessment Anesthesia Assessment: Anesthesia Plan Discussed, Smoking Cess. Discussed and Chart Reviewed Final Anesthetic Review Family History of Problems with Anesthesia: No History of Problems with Anesthesia: No NPO: Yes ASA Class: II Final Preanesthetic Review: No Changes in Pt Med Stat, Meds/Allgs Chart Reviewed, Consent Obtained/Reviewed and Anes Risks/Benef Reviewed Patient Risk: Low Procedure Risk: Low Anesthetic Plan Anesthetic Plan: MAC: Disposition: Standard PACU
[2022-05-09 15:02] VITALS: BP 112/61; PULSE 75; RESP 16; TEMP 36.4; O2SAT 100
[2022-05-09 15:17] VITALS: BP 129/70; PULSE 73; RESP 16; TEMP 36.4; O2SAT 100
[2022-05-09 15:32] VITALS: BP 135/63; PULSE 75; RESP 16; O2SAT 98
[2022-05-09 15:47] VITALS: BP 122/59; PULSE 76; RESP 16; O2SAT 97
[2022-05-09 16:02] VITALS: BP 132/65; PULSE 69; RESP 18; TEMP 36.7; O2SAT 98
--- NOTE | 2022-05-09 16:08 | PM.OP ---
Brief Operative Note Date of Service: 05/09/22 Pre-op diagnosis: n, v abd pain Post-op diagnosis: same Procedure: egd Surgeon: Eulalio Cole Anesthesia: MAC Was an Psychiatry Resident used for this Procedure?: No Estimated blood loss (mL): 5 Pathology: other Condition: stable Disposition: PACU
--- NOTE | 2022-05-10 01:12 | OP_ITS ---
DATE OF SERVICE: 05/09/2022 SURGEON: Eulalio Cole MD INDICATIONS: Nausea and vomiting, with epigastric pain. PREOPERATIVE DIAGNOSIS: POSTOPERATIVE DIAGNOSIS: PROCEDURE PERFORMED: Upper endoscopy with biopsy. ESTIMATED BLOOD LOSS: COMPLICATIONS: ANESTHESIA: Monitored anesthesia care. ASSISTANTS: SPECIMENS: PROCEDURE DESCRIPTION: A history and physical was performed. The risks and benefits of the procedure were explained to the patient. Informed consent was obtained. The patient was placed in the left lateral decubitus position. The Olympus video gastroscope was introduced into the esophagus, stomach, and duodenum. Examination was performed. The scope was removed. She tolerated the procedure well and was taken to recovery room in stable condition. FINDINGS: Esophagus: Showed no stricture or narrowing and there were some retained secretions. The scope easily passed through the EG junction, which was slightly irregular and into the stomach. Stomach: Showed no evidence of masses or ulcers. There were several less than 10 mm benign appearing gastric polyps in the body of the stomach, 2 of these were biopsied and biopsies were also obtained from the EG junction and antrum. Duodenum: The bulb and 2nd portion were normal. IMPRESSION: 1. Nausea and vomiting. 2. Epigastric pain. 3. Gastric polyps. RECOMMENDATION: Follow up the biopsy results. MD CHINA Johnson/COBYL / [id number]
== END 2022-05-09 18:57 | disposition home or self-care (01) ==
PROVIDERS: PCP Internal Medicine; Visit Provider Internal Medicine Gastroenterology
PROC: 0DJ08ZZ Inspection of Upper Intestinal Tract, Via Natural or Artificial Opening Endoscopic (ICD-10-PCS; CPT 43235; principal; 2022-05-09 14:10)
DX: R10.13 Epigastric pain (principal); K29.50 Unspecified chronic gastritis without bleeding; K31.7 Polyp of stomach and duodenum; I10 Essential (primary) hypertension; E11.9 Type 2 diabetes mellitus without complications; I25.10 Atherosclerotic heart disease of native coronary artery without angina pectoris; Z79.4 Long term (current) use of insulin; Z79.899 Other long term (current) drug therapy
CPT/HCPCS: 43239; 82947; 88305; 88342; J2250

== ENCOUNTER → 2022-05-16 08:14 | Outpatient (BNVA) | payer OTHER, SELFPAY | PROVIDERS: PCP Internal Medicine; Visit Provider Internal Medicine Endocrinology, Diabetes & Metabolism | DX: E11.65 Type 2 diabetes mellitus with hyperglycemia (principal) | CPT/HCPCS: 82947; 99202 ==

== ENCOUNTER 2022-05-16 09:32 | Outpatient (REF) | payer OTHER, SELFPAY ==
[2022-05-16 11:28] LABS: Cholesterol 195 mg/dL; HDL Cholesterol 34 mg/dL; LDL Cholesterol Calculated 89 mg/dl; Triglycerides 361 mg/dL
[2022-05-16 11:31] LABS: Creatinine Urine 77.67 mg/dL; Microalbum/Creatinine Ratio Ur 55.3 ug/mg cr
== END 2022-05-16 09:33 | disposition home or self-care (01) ==
LOC: HO.10HDL 09:32
PROVIDERS: Visit Provider Internal Medicine Endocrinology, Diabetes & Metabolism
DX: E11.65 Type 2 diabetes mellitus with hyperglycemia (principal)
CPT/HCPCS: 36415; 80061; 82043

== ENCOUNTER → 2022-08-02 09:20 | Outpatient (BNVA) | payer OTHER, SELFPAY | PROVIDERS: PCP Internal Medicine; Visit Provider Dietitian, Registered | DX: E11.65 Type 2 diabetes mellitus with hyperglycemia (principal) | CPT/HCPCS: 97802 ==

== ENCOUNTER → 2022-08-15 08:08 | Outpatient (BNVA) | payer OTHER, SELFPAY | PROVIDERS: PCP Internal Medicine; Visit Provider Internal Medicine Endocrinology, Diabetes & Metabolism | DX: E11.65 Type 2 diabetes mellitus with hyperglycemia (principal) | CPT/HCPCS: 82947; 83036; 99212 ==

== ENCOUNTER 2022-08-16 16:00 | Outpatient (REF) | payer OTHER, SELFPAY | END 2022-08-16 16:01 | disposition home or self-care (01) | LOC: HO.LAB 16:00 | PROVIDERS: PCP Internal Medicine; Visit Provider Internal Medicine | DX: R30.0 Dysuria (principal) | CPT/HCPCS: 81001; 87086; 87147 ==

== ENCOUNTER 2022-08-24 14:33 | Outpatient (AMB) | payer OTHER, SELFPAY ==
--- NOTE | 2022-08-24 15:06 | A.OFFVIS_ITS ---
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: Yes Steam Clean Machine Operator Language: Kyrgyz Steam Clean Machine Operator Name: [id number] Information Interpreted: non-clinical & clinical Accompanied by: Son Allergies No Known Allergies Allergy (Verified 08/15/22 08:15) HPI Comprehensive Diabetes Asmnt Most Recent Diabetes Results: Microalb/Creat Ratio 55.3 ug/mg cr 05/16/22 Cholesterol 195 mg/dL 05/16/22 HDL Cholesterol 34 mg/dL 05/16/22 Triglycerides 361 mg/dL 05/16/22 [facility] Medical History (Updated 05/16/22 @ 08:23 by Reji Morrison MD) Arthritis CAD (coronary artery disease) Fistula HTN (hypertension) Type 2 diabetes mellitus Uncontrolled diabetes mellitus with hyperglycemia Surgical History H/O hemorrhoidectomy History of appendectomy History of back surgery History of total abdominal hysterectomy Social History Patient Tobacco Use Status: Never used Tobacco Assessment & Plan Assessment & Plan (1) Uncontrolled diabetes mellitus with hyperglycemia: Code(s): E11.65 - Type 2 diabetes mellitus with hyperglycemia Plan: Insulin Education visit Patient transitioning from Tradjenta, to Trulicity 0.75 mg/mL, and from Novolin 70/30 to Lantus 30 units daily Patient Education: Patient was instructed and provided with demonstration of the following: Insulin action insulin storage how to set up insulin pen/or syringe and vial Handwashing insulin injection site rotation Site rotation recognizing hypertrophy Testing blood glucose Removing and disposing needle from insulin pen Safe disposal of sharps Target blood sugar Signs/ symptoms/treatment of hypoglycemia/hyperglycemia expiration of open insulin pen Patient verbalized understanding of education provided and was able to demonstrate proper use of inject into injection pillow Reviewed rule of 15s to treat glucose under 70 mg/dL All questions were answered and patient was advised to contact the office with any questions or concerns. Plan Patient Instructions: How to Use Your Insulin Pen Supplies you will need: alcohol, alcohol wipes, insulin pen, pen needle * Wash your hands * Remove cap from the top of the pen * Clean the top of the pen with alcohol swab * Remove paper tab from pen needle base * Screw pen needle firmly on to pen * Remove outer cover of pen needle put it aside, discard little cover from pen needle * Dial base of needle to 2 units, press and make sure you see a drip at top of needle * Check to see the dial return to zero * Dial your correct insulin dose at base of pen * Clean injection site with alcohol or hot soapy water, remember always to rotate injection sites with every injection * Inject needle at 90? angle into chosen injection site * Press the button on the bottom of the pen * After you press the button count to 5 and then remove needle from your skin * Put the large needle cap back over needle and unscrew counterclockwise to remove pen needle * Replace insulin pen cover * Write the date on the pen when you opened or expiration date. Once insulin pens are open they can be left at room temperature. Please see below: * Humalog, Novolog, Lantus and Basaglar are good for 28 days Store unopened pens in the refrigerator until expiration date on the box. Hypoglycemia or blood glucose under 70 use the rule of 15's: If you have your blood glucose meter test your blood glucose, if you do not have your meter still follow below instruction: Keep quick-sugar foods with you at all times.? Take 15 grams of fast acting carbohydrates. Examples are 4 ounces of fruit juice or regular soda pop, 8 ounces fat-free milk, 1 tablespoon of table sugar, honey or corn syrup, jam, one miniature box of raisins, 7-8 gumdrops or Life Savers candy, 4 glucose tablets, and glucose gel.? Retest blood glucose in 15 minutes, if blood glucose is still under 80, repeat rule of 15's. If blood glucose is under 50, take 30 grams of fast acting carbohydrates If you are having hypoglycemia, or insulin reaction, more then a few times a week, call MD or clinical informatics educator Stop Tradjenta before starting Trulicity 0.75 mg/mL Stop Novolin, start Lantus 30 units daily Coding Level of Care Code Est Pt Level 1 (65614) Diagnoses Uncontrolled diabetes mellitus with hyperglycemia E11.65
== END 2022-08-24 15:35 | disposition home or self-care (01) ==
PROVIDERS: PCP Internal Medicine; Visit Provider Registered Nurse Diabetes Educator
DX: E11.65 Type 2 diabetes mellitus with hyperglycemia (principal)

== ENCOUNTER → 2022-08-24 14:33 | Outpatient (BNVA) | payer OTHER, SELFPAY | PROVIDERS: PCP Internal Medicine; Visit Provider Registered Nurse Diabetes Educator | DX: E11.65 Type 2 diabetes mellitus with hyperglycemia (principal) | CPT/HCPCS: 99211 ==

== ENCOUNTER 2022-09-16 00:48 | Emergency (ER) | payer OTHER, SELFPAY ==
--- NOTE | 2022-09-16 | ECG_ITS ---
Test Reason : BODY PAIN Blood Pressure : / mmHG Vent. Rate : 091 BPM Atrial Rate : 091 BPM P-R Int : 158 ms QRS Dur : 092 ms QT Int : 366 ms P-R-T Axes : 041 -24 023 degrees QTc Int : 450 ms Normal sinus rhythm Nonspecific ST and T wave abnormality Borderline ECG No previous ECGs available Referred By: Anson Peterson Electronically Signed By:KAYLA COX
--- NOTE | ~2022-09-16 | XR_ITS ---
EXAMINATION: XR CHEST CLINICAL INFORMATION: Upper back pain and chest pain. COMPARISON: None available. TECHNIQUE: 2 views of the chest were obtained. FINDINGS: Normal symmetric lung volumes. No parenchymal consolidation. No pleural effusion. No pneumothorax. Cardiomediastinal silhouette and pulmonary vascularity are within normal limits. No acute osseous abnormalities. XR/XR chest 2V IMPRESSION: No acute findings
--- NOTE | ~2022-09-16 | XR_ITS ---
EXAMINATION: XR CERVICAL SPINE CLINICAL INFORMATION: Neck pain COMPARISON: 04/04/2022 TECHNIQUE: 4 views of the cervical spine were obtained. FINDINGS: No acute fracture or traumatic malalignment. Vertebral body heights maintained. Endplate osteophytes and facet arthropathy present throughout the cervical spine. Paraspinal soft tissues unremarkable. XR/XR cervical spine 3V IMPRESSION: * No acute findings. * Cervical spondylosis as described.
--- NOTE | ~2022-09-16 | XR_ITS ---
EXAMINATION: XR SHOULDER, RIGHT CLINICAL INFORMATION: Pain COMPARISON: None available. TECHNIQUE: AP external rotation, Grashey, scapular Y, and axillary views of the right shoulder. FINDINGS: The bones and soft tissues are normal. No fracture. Glenohumeral and acromioclavicular alignment is anatomic with normal joint space. No abnormal soft tissue calcifications. XR/XR shoulder RT min 2V IMPRESSION: Normal right shoulder.
[2022-09-16 00:57] VITALS: BP 160/75; PULSE 97; RESP 18; TEMP 36.8; O2SAT 99; BMI 31.9
[2022-09-16 01:56] LABS: MANUAL DIFF FLAG NO
[2022-09-16 01:58] LABS: Basophils Percent Auto 0.2 % (0-2); Eosinophils Absolute Auto 0.1 X10*3/uL (0.0-0.4); Eosinophils Percent Auto 1.1 % (0-4); Hematocrit 34.8 % (37.0-47.0); Hemoglobin 10.4 g/dl (12.0-16.0); Imm Gran Abs Auto 0.04 X10*3/uL (0.00-0.03); Imm Gran Pct Auto 0.4 % (0.0-0.4); Lymphocytes Absolute Auto 3.3 X10*3/uL (1.2-4.9); Lymphocytes Percent Auto 33.4 % (20-40); Mean Corpuscular HGB Conc 29.9 g/dl (31.0-35.0); Mean Corpuscular Hemoglobin 22.6 pg (27.0-33.0); Mean Corpuscular Volume 75.7 fL (80.0-98.0); Mean Platelet Volume 10.9 fL (9.4-12.3); Monocytes Absolute Auto 0.6 X10*3/uL (0.1-1.2); Monocytes Percent Auto 5.9 % (2-11); Neutrophils Absolute Auto 5.7 x10*3/uL (2.0-8.3); Platelet Count 282 X10*3/uL (160-400); White Blood Count 9.7 X10*3/uL (4.8-10.8)
[2022-09-16 02:10] LABS: Influenza A PCR NEGATIVE (Negative); Influenza B PCR NEGATIVE (Negative); Resp Syncy Virus RNA Qual PCR NEGATIVE (Negative); SARS COV2 PCR INHOUSE NEGATIVE (Negative)
[2022-09-16 02:16] LABS: Alanine Aminotransferase 21 U/L (0-31); Albumin Level 4.2 g/dL (3.5-5.0); Alkaline Phosphatase 101 U/L (39-117); Anion Gap 18 (12-20); Aspartate Amino Transferase 23 U/L (5-31); Bilirubin Total 0.1 mg/dL (0.0-1.0); Blood Urea Nitrogen 10 mg/dL (9-16); Calcium 9.9 mg/dL (8.4-10.2); Carbon Dioxide 20 mmol/L (22-29); Chloride 105 mmol/L (96-108); Creatinine Clr Calc Pharmacy 74.9; Estimated Glomerular Filt Rate > 60; Glucose Random 285 mg/dL (60-115); Potassium 4.2 mmol/L (3.3-5.1); Sodium 139 mmol/L (135-145); Total Protein 8.1 g/dL (6.5-8.0)
[2022-09-16 02:22] LABS: Troponin-I High Sensitivity < 2.7 ng/L (<3.5-17.0)
[2022-09-16 02:59] LABS: Appearance Urine Clear; Color Urine Yellow; Glucose Urine UA >=1000 mg/dL (Negative); Leukocyte Esterase Urine Small (1+) (Negative); Nitrite Urine Negative (Negative); Specific Gravity - Urine >= 1.030 (1.005-1.025); UMIC TRIGGER UACC YES; Urine Blood Negative (Negative); Urine Ketones Negative (Negative); Urine Protein Negative (Neg-Trace)
[2022-09-16 03:15] LABS: Bacteria Urine None Seen (None Seen); Hyaline Casts Urine 0-2 /LPF (0-2); RBC Urine 0-2 /HPF (0-2); Squamous Epithelial Cell Urine 0-2 /HPF (0-2); UACC Culture Trigger YES
--- NOTE | 2022-09-16 03:21 | ED.GENADULT ---
HPI - General Adult General Chief complaint: Extremity Problem Stated complaint: pain in arms/Shaking/diabetic Time Seen by Provider: 09/16/22 03:00 Source: patient Mode of arrival: ambulatory Limitations: no limitations History of Present Illness HPI narrative: Patient diabetic with history of chronic back pain noticed pain in lower neck upper back area and right shoulder for 3 days atraumatic with very anxious patient is scheduled for surgery lower spinal area on 09/24 no shortness of breath no fever no chills Related Data Home Medications Medication Instructions Recorded Confirmed bisoprolol fumarate 5 mg tablet 5 mg PO DAILY 05/08/22 05/08/22 cetirizine 10 mg tablet 10 mg PO DAILY 05/08/22 05/08/22 clonazepam 0.5 mg tablet 0.5 mg PO BEDTIME PRN Anxiety 05/08/22 05/08/22 clopidogrel 75 mg tablet 75 mg PO DAILY 05/08/22 05/08/22 empagliflozin 10 mg tablet 10 mg PO DAILY 05/08/22 05/08/22 (Jardiance) metformin 850 mg tablet 850 mg PO BID 05/08/22 05/08/22 metoclopramide HCl 10 mg tablet 10 mg PO Q6H PRN nausea 05/08/22 05/08/22 omeprazole 40 mg capsule,delayed 40 mg PO QAM 05/08/22 05/08/22 release ondansetron HCl 4 mg tablet 4 mg PO BID PRN Nausea 05/08/22 05/08/22 quetiapine 25 mg tablet 25 mg PO BEDTIME 05/08/22 05/08/22 rabeprazole 20 mg tablet,delayed 20 mg PO DAILY 05/08/22 05/08/22 release tacrolimus 0.1 % topical ointment topical BID PRN prn 05/08/22 triamcinolone acetonide 0.1 % appl topical 05/08/22 05/08/22 topical cream blood sugar diagnostic (FreeStyle #10 ea 05/16/22 Test strips) blood-glucose meter (FreeStyle #1 ea 05/16/22 Divide Lite kit) lancets 28 gauge (FreeStyle #100 ea 05/16/22 Lancets) Previous Rx's Medication Instructions Recorded gabapentin 100 mg capsule 100 mg PO BID #60 caps 02/27/22 metoclopramide HCl 10 mg tablet 10 mg PO Q6H PRN nausea #20 tabs 03/19/22 flash glucose scanning reader #1 ea 05/16/22 (FreeStyle Anamaria 2 [place]) flash glucose sensor (FreeStyle #6 ea 05/16/22 Anamaria 2 Sensor kit) glucagon 3 mg/actuation nasal 3 mg intranasal ONCE #2 ea 05/16/22 spray (Baqsimi) dulaglutide 0.75 mg/0.5 mL 0.75 mg (0.5 mL) subcut QWEEK #2 mL 08/15/22 subcutaneous pen injector (Trulicity) insulin glargine 100 unit/mL (3 30 unit (0.3 mL) subcut DAILY #15 08/15/22 mL) subcutaneous pen (Lantus mL Solostar U-100 Insulin) insulin human U-100 NPH-regulr See Rx Instructions subcut BID #10 08/15/22 70-30 mix 100 unit/mL subcutaneous mL susp (Novolin 70/30 U-100 Insulin) pen needle, diabetic 32 gauge x #50 ea 08/24/2206/26 (Comfort EZ Pen [place]) tramadol 50 mg tablet 50 mg PO Q6H PRN pain #20 tabs 09/16/22 Allergies Allergy/AdvReac Type Severity Reaction Status Date / Time No Known Allergies Allergy Verified 08/15/22 08:15 Review of Systems Review of Systems: Yes all other systems are reviewed and are negative [facility] Past Medical History Medical History Arthritis CAD (coronary artery disease) Fistula HTN (hypertension) Type 2 diabetes mellitus Uncontrolled diabetes mellitus with hyperglycemia Surgical History H/O hemorrhoidectomy History of appendectomy History of back surgery History of total abdominal hysterectomy Social History Social History Patient Tobacco Use Status: Never used Tobacco Advance Directives: No Advance Directives Information Provided: Yes Physical Exam ED Vital Signs: Vital Signs - 24 hr 09/16/22 00:57 09/16/22 03:52 Temperature 98.2 F Pulse Rate 97 88 Respiratory Rate 18 12 Blood Pressure 160/75 H 129/68 Pulse Oximetry 99 99 Oxygen Delivery Method Room Air Room Air BMI result Body Mass Index 31.9 Appearance: Alert. Oriented X3. No acute distress and she. Eyes: PERRLA, No Nystagmus ENT: Pharynx normal. Oral Mucosa moist Neck: Normal inspection. Neck supple. CVS: Normal heart rate and rhythm. Pulses normal. Respiratory: No respiratory distress. Equal air entry bilateral, no wheezing/rales/rhonchi chest wall tender+ Abdomen: Soft and nontender. Bowel sounds are present, no mass palpable, no CVA tenderness Skin: Skin warm and dry. Normal skin color. Normal skin turgor. Extremities: No lower extremity edema. No calf tenderness tenderness right shoulder, on extreme abduct tenderness bilateral rhomboid Neuro: Oriented X 3. No motor deficit. No sensory deficit.No cerebellar signs , cranial nerves II-XII intact Medications Administered Discontinued Medications Generic Name Dose Route Start Last Admin Trade Name Freq PRN Reason Stop Dose Admin Morphine Sulfate 4 mg 09/16/22 03:22 09/16/22 03:48 Morphine Sulfate 4 Mg/Ml Cartridge IVPUSH 09/16/22 03:23 4 mg ONCE ONE Administration Protocol Ondansetron HCl 4 mg 09/16/22 03:22 09/16/22 03:47 Ondansetron Hcl 4 Mg/2 Ml Vial IVPUSH 09/16/22 03:23 4 mg ONCE ONE Administration Medical Decision Making Medical Decision Making [facility] Narrative: Patient with diffuse muscular pain likely fibromyalgia labs are stable discharge patient home on tramadol Lab Data [facility] Lab Attestation statement: I reviewed the patient's lab results. 09/16/22 01:52 09/16/22 01:52 Labs: Lab Results 09/16/22 09/16/22 09/16/22 Range/Units 01:21 01:52 01:52 WBC 9.7 (4.8-10.8) X10*3/uL RBC 4.60 (4.20-5.50) X10*6/uL Hgb 10.4 L (12.0-16.0) g/dl Hct 34.8 L (37.0-47.0) % MCV 75.7 L (80.0-98.0) fL MCH 22.6 L (27.0-33.0) pg MCHC 29.9 L (31.0-35.0) g/dl RDW 17.0 H (11.0-16.0) % Plt Count 282 (160-400) X10*3/uL MPV 10.9 (9.4-12.3) fL Immature Gran % (Auto) 0.4 (0.0-0.4) % Neut % (Auto) 59.0 (45-73) % Lymph % (Auto) 33.4 (20-40) % [place] % (Auto) 5.9 (2-11) % Eos % (Auto) 1.1 (0-4) % Baso % (Auto) 0.2 (0-2) % Lymph # (Auto) 3.3 (1.2-4.9) X10*3/uL [place] # (Auto) 0.6 (0.1-1.2) X10*3/uL Eos # (Auto) 0.1 (0.0-0.4) X10*3/uL Baso # (Auto) 0.0 (0.0-0.2) X10*3/uL Abs Immat Gran (auto) 0.04 H (0.00-0.03) X10*3/uL Absolute Neuts (auto) 5.7 (2.0-8.3) x10*3/uL Absolute Nucleated RBC 0.000 (0.0-0.012) X10*3/uL Nucleated RBC % (auto) 0.0 (0.0-0.2) /100WBC Sodium (135-145) mmol/L Potassium (3.3-5.1) mmol/L Chloride (96-108) mmol/L Carbon Dioxide (22-29) mmol/L Anion Gap (12-20) BUN (9-16) mg/dL Creatinine (0.5-1.4) mg/dL Estim Creat Clear Calc Estimated GFR Random Glucose (60-115) mg/dL Calcium (8.4-10.2) mg/dL Total Bilirubin (0.0-1.0) mg/dL AST (5-31) U/L ALT (0-31) U/L Alkaline Phosphatase (39-117) U/L Troponin I High Sens < 2.7 (<3.5-17.0) ng/L Total Protein (6.5-8.0) g/dL Albumin (3.5-5.0) g/dL Urine Color Urine Appearance Urine pH (5.0-9.0) Ur Specific [place] (1.005-1.025) Urine Protein (Neg-Trace) mg/dL Urine Glucose (UA) (Negative) mg/dL Urine Ketones (Negative) mg/dL Urine Blood (Negative) Urine Nitrite (Negative) Ur Leukocyte Esterase (Negative) Urine RBC (0-2) /HPF Urine WBC (0-5) /HPF Ur Squamous Epith Cells (0-2) /HPF Urine Bacteria (None Seen) Hyaline Casts (0-2) /LPF Influenza Type A (PCR) NEGATIVE (Negative) Influenza Type B (PCR) NEGATIVE (Negative) RSV RNA Qual (PCR) NEGATIVE (Negative) SARS-CoV-2 RNA (RT-PCR) NEGATIVE (Negative) 09/16/22 09/16/22 Range/Units 01:52 02:51 WBC (4.8-10.8) X10*3/uL RBC (4.20-5.50) X10*6/uL Hgb (12.0-16.0) g/dl Hct (37.0-47.0) % MCV (80.0-98.0) fL MCH (27.0-33.0) pg MCHC (31.0-35.0) g/dl RDW (11.0-16.0) % Plt Count (160-400) X10*3/uL MPV (9.4-12.3) fL Immature Gran % (Auto) (0.0-0.4) % Neut % (Auto) (45-73) % Lymph % (Auto) (20-40) % [place] % (Auto) (2-11) % Eos % (Auto) (0-4) % Baso % (Auto) (0-2) % Lymph # (Auto) (1.2-4.9) X10*3/uL [place] # (Auto) (0.1-1.2) X10*3/uL Eos # (Auto) (0.0-0.4) X10*3/uL Baso # (Auto) (0.0-0.2) X10*3/uL Abs Immat Gran (auto) (0.00-0.03) X10*3/uL Absolute Neuts (auto) (2.0-8.3) x10*3/uL Absolute Nucleated RBC (0.0-0.012) X10*3/uL Nucleated RBC % (auto) (0.0-0.2) /100WBC Sodium 139 (135-145) mmol/L Potassium 4.2 (3.3-5.1) mmol/L Chloride 105 (96-108) mmol/L Carbon Dioxide 20 L (22-29) mmol/L Anion Gap 18 (12-20) BUN 10 (9-16) mg/dL Creatinine 0.79 (0.5-1.4) mg/dL Estim Creat Clear Calc 74.9 Estimated GFR > 60 Random Glucose 285 H (60-115) mg/dL Calcium 9.9 (8.4-10.2) mg/dL Total Bilirubin 0.1 (0.0-1.0) mg/dL AST 23 (5-31) U/L ALT 21 (0-31) U/L Alkaline Phosphatase 101 (39-117) U/L Troponin I High Sens (<3.5-17.0) ng/L Total Protein 8.1 H (6.5-8.0) g/dL Albumin 4.2 (3.5-5.0) g/dL Urine Color Yellow Urine Appearance Clear Urine pH 6.0 (5.0-9.0) Ur Specific [place] >= 1.030 H (1.005-1.025) Urine Protein Negative (Neg-Trace) mg/dL Urine Glucose (UA) >=1000 H (Negative) mg/dL Urine Ketones Negative (Negative) mg/dL Urine Blood Negative (Negative) Urine Nitrite Negative (Negative) Ur Leukocyte Esterase Small (1+) H (Negative) Urine RBC 0-2 (0-2) /HPF Urine WBC 11-20 H (0-5) /HPF Ur Squamous Epith Cells 0-2 (0-2) /HPF Urine Bacteria None Seen (None Seen) Hyaline Casts 0-2 (0-2) /LPF Influenza Type A (PCR) (Negative) Influenza Type B (PCR) (Negative) RSV RNA Qual (PCR) (Negative) SARS-CoV-2 RNA (RT-PCR) (Negative) Discharge Plan Discharge Clinical Impression: Musculoskeletal back pain Patient Disposition: Home, Self-Care Instructions: Musculoskeletal Pain (ED) Additional Instructions: Continue taking your medications Tramadol for severe pain Follow-up with your PCPs Prescriptions: New tramadol 50 mg tablet 50 mg PO Q6H PRN (Reason: pain) Qty: 20 0RF No Action (DME) pen needle, diabetic [Comfort EZ Pen [place]] 32 gauge x 5/16 needle See Rx Instructions .Route Qty: 50 3RF Rx Instructions: As directed inject once a day gabapentin 100 mg capsule 100 mg PO BID Qty: 60 0RF metoclopramide HCl 10 mg tablet 10 mg PO Q6H PRN (Reason: nausea) Qty: 20 0RF rabeprazole 20 mg tablet,delayed release (DR/EC) 20 mg PO DAILY cetirizine 10 mg tablet 10 mg PO DAILY ondansetron HCl 4 mg tablet 4 mg PO BID PRN (Reason: Nausea) clonazepam 0.5 mg tablet 0.5 mg PO BEDTIME PRN (Reason: Anxiety) metformin 850 mg tablet 850 mg PO BID clopidogrel 75 mg tablet 75 mg PO DAILY omeprazole 40 mg capsule,delayed release(DR/EC) 40 mg PO QAM triamcinolone acetonide 0.1 % cream topical bisoprolol fumarate 5 mg tablet 5 mg PO DAILY tacrolimus 0.1 % ointment topical BID PRN (Reason: prn) metoclopramide HCl 10 mg tablet 10 mg PO Q6H PRN (Reason: nausea) Jardiance 10 mg tablet 10 mg PO DAILY quetiapine 25 mg Tablet 25 mg PO BEDTIME (DME) lancets [FreeStyle Lancets] 28 gauge misc See Rx Instructions .ROUTE .MEDSUPPLY Qty: 100 Rx Instructions: As directed (DME) blood-glucose meter [FreeStyle Divide Lite] Kit See Rx Instructions .ROUTE BID Qty: 1 Rx Instructions: As directed (DME) FreeStyle Test Strip See Rx Instructions .ROUTE BID Qty: 10 Rx Instructions: As directed (DME) FreeStyle Anamaria 2 Sensor Kit See Rx Instructions .Route Qty: 6 6RF Rx Instructions: As directed change every 14 days (DME) FreeStyle Anamaria 2 [place] Misc See Rx Instructions .Route Qty: 1 5RF Rx Instructions: As directed Baqsimi 3 mg/actuation spray,non-aerosol 3 mg intranasal ONCE Qty: 2 5RF Novolin 70/30 U-100 Insulin 100 unit/mL (70-30) suspension See Rx Instructions subcut BID Qty: 10 1RF Rx Instructions: 38 units in the morning and 22 units before supper subcutaneously 2 times a day; Trulicity 0.75 mg/0.5 mL pen injector 0.75 mg subcut QWEEK Qty: 2 4RF insulin glargine [Lantus Solostar U-100 Insulin] 100 unit/mL (3 mL) insulin pen 30 unit subcut DAILY Qty: 15 4RF
[2022-09-16] MEDS: ondansetron HCL 4 MG/2 ML VIAL IVPUSH (03:47)
[2022-09-16] MEDS: Morphine Sulfate 4 MG/ML CARTRIDGE IVPUSH (03:48)
[2022-09-16 03:52] VITALS: BP 129/68; PULSE 88; RESP 12; O2SAT 99
--- NOTE | 2022-09-16 03:53 | PC.NURSE ---
Pt medicated as ordered. Tolerated well.
== END 2022-09-16 05:49 | disposition home or self-care (01) ==
PROVIDERS: Emergency Provider Internal Medicine; PCP Internal Medicine
DX: M54.50 Low back pain, unspecified (principal); M54.2 Cervicalgia; M25.511 Pain in right shoulder; M79.10 Myalgia, unspecified site; Z20.822 Contact with and (suspected) exposure to COVID-19; Z20.828 Contact with and (suspected) exposure to other viral communicable diseases; Z79.899 Other long term (current) drug therapy
CPT/HCPCS: 0241U; 36415; 71046; 72040; 73030; 80053; 81001; 84484; 85025; 87086; 93005; 99284; J2270; J2405

== ENCOUNTER → 2022-09-16 01:59 | Outpatient (BNV) | payer OTHER, SELFPAY | PROVIDERS: Emergency Provider Internal Medicine; PCP Internal Medicine; Visit Provider Internal Medicine | DX: G89.29 Other chronic pain (principal) | CPT/HCPCS: 93010 ==

== ENCOUNTER 2022-10-24 13:04 | Outpatient (REF) | payer OTHER, SELFPAY ==
[2022-10-24 13:18] LABS: MANUAL DIFF FLAG NO
[2022-10-24 13:29] LABS: Basophils Percent Auto 0.3 % (0-2); Eosinophils Absolute Auto 0.1 X10*3/uL (0.0-0.4); Eosinophils Percent Auto 1.2 % (0-4); Hemoglobin 9.5 g/dl (12.0-16.0); Imm Gran Abs Auto 0.04 X10*3/uL (0.00-0.03); Imm Gran Pct Auto 0.4 % (0.0-0.4); Lymphocytes Absolute Auto 3.3 X10*3/uL (1.2-4.9); Lymphocytes Percent Auto 32.7 % (20-40); Mean Corpuscular HGB Conc 29.7 g/dl (31.0-35.0); Mean Corpuscular Hemoglobin 22.8 pg (27.0-33.0); Mean Corpuscular Volume 76.9 fL (80.0-98.0); Mean Platelet Volume 10.8 fL (9.4-12.3); Monocytes Absolute Auto 0.6 X10*3/uL (0.1-1.2); Monocytes Percent Auto 6.3 % (2-11); Neutrophils Percent Auto 59.1 % (45-73); Platelet Count 300 X10*3/uL (160-400); Red Blood Count 4.16 X10*6/uL (4.20-5.50); White Blood Count 10.1 X10*3/uL (4.8-10.8)
[2022-10-24 14:03] LABS: Alanine Aminotransferase 22 U/L (0-31); Albumin Level 4.1 g/dL (3.5-5.0); Alkaline Phosphatase 94 U/L (39-117); Aspartate Amino Transferase 22 U/L (5-31); Bilirubin Direct 0.1 mg/dL (0.0-0.5); Bilirubin Total 0.3 mg/dL (0.0-1.0); Lipase 20 U/L (8-78); Total Protein 7.6 g/dL (6.5-8.0)
== END 2022-10-24 13:05 | disposition home or self-care (01) ==
LOC: HO.LAB 13:04
PROVIDERS: PCP Internal Medicine; Visit Provider Internal Medicine Gastroenterology
DX: R11.2 Nausea with vomiting, unspecified (principal)
CPT/HCPCS: 36415; 80076; 83690; 85025

== ENCOUNTER 2022-10-30 07:58 | Outpatient (REF) | payer OTHER, SELFPAY ==
--- NOTE | ~2022-10-30 | FL_ITS ---
EXAMINATION: XR FLUOROSCOPY BARIUM SWALLOW WITH AIR CLINICAL INFORMATION: Dysphasia, episodic vomiting, nausea; patient states past few months since lumbar surgery. Constant nausea with episodic vomiting. COMPARISON: Upper GI examination dated 04/12/2022. TECHNIQUE: Fluoroscopic air contrast barium swallow examination was performed utilizing standard techniques with thin and thick barium and effervescent granules. Numerous spot images were obtained. FINDINGS: Lateral cine images of the oropharynx and hypopharynx demonstrate normal swallow mechanism with normal epiglottic inversion and soft palate elevation. There was no tracheal penetration, glottic or subglottic aspiration identified. No nasopharyngeal reflux present. Hypopharyngeal structures appear normal without evidence of mass or diverticulum. There was no significant cricopharyngeal achalasia. Dual and single contrast images of the esophagus demonstrate the esophagus is somewhat diffusely patulous, without evidence of stricture, mass, or mucosal abnormality. The lower esophageal sphincter was extremely delayed in allowing passage of barium, and significantly narrowed as it did allow passage, with bird beak type appearance , findings highly suspect for achalasia. Peristalsis of the esophagus was extremely disordered. Tiny type I hiatus hernia was present. No significant gastroesophageal reflux noted, mainly due to lack of relaxation of the lower esophageal sphincter. Dual contrast and single contrast images of the stomach demonstrated normal contour and mucosal pattern without evidence of mass, ulceration, or other abnormality. Contrast freely passed into the gastric antrum and duodenal bulb without delay. Single and air-contrast images of the duodenal bulb demonstrate no abnormality. The duodenal sweep has a normal appearance, course, and mucosal fold appearance. The imaged proximal jejunum has a normal fold pattern and caliber. FLUOROSCOPY TIME: 4 minutes 28 seconds Number of Spot Images: 18 DOSE AREA PRODUCT: 4255 uGy-m2 (microgray-meter squared) FL/FL barium swallow with air IMPRESSION: 1. Overall impression is findings highly suspect for achalasia, with lack of the lower esophageal sphincter to relax, with bird beak type appearance , and extremely delayed passage of barium. When the LES did relax, the outlet remained significantly narrowed. 2. As a result, the esophagus was somewhat patulous and mildly dilated, with extremely disordered motility. 3. Tiny type I hiatus hernia. No significant GE reflux. Stasis of the barium column within the esophagus was noted. 3. Normal-appearing stomach, duodenal bulb, sweep, and proximal jejunum. 4. No gross hypopharyngeal phase abnormality.
== END 2022-10-30 07:59 | disposition home or self-care (01) ==
LOC: HO.XRAY 07:58
PROVIDERS: PCP Internal Medicine; Visit Provider Internal Medicine Gastroenterology
DX: R11.2 Nausea with vomiting, unspecified (principal)
CPT/HCPCS: 74221

== ENCOUNTER → 2022-10-30 08:00 | Outpatient (BNV) | payer OTHER, SELFPAY | PROVIDERS: PCP Internal Medicine; Visit Provider Radiology Diagnostic Radiology | DX: R13.10 Dysphagia, unspecified (principal) | CPT/HCPCS: 74221 ==

== ENCOUNTER 2022-11-15 08:09 | Outpatient (AMB) | payer OTHER, SELFPAY ==
--- NOTE | 2022-11-15 08:12 | MHC.OFFVIS ---
Intake Vital Signs 11/15/22 08:13 Height 5 ft Weight 158 lb 4.67 oz BMI 30.9 BP 122/88 Blood Pressure Location Lt brachial Position Sitting Pulse 80 Pulse Source Pulse Oximeter Intake Visit Reasons: f/u Type 2 DM-CONFIRMED Intake Note: Patient present today to follow up on Type 2 Diabetes Mellitus. Patient receives DME supplies through: Pharmacy Last Diabetic Eye exam: 09/2022 Last Podiatry Visit: Does not see Glass Finisher Random Glucose: 126 mg/dl HgA1C: 7.7% Tapping Machine Operator Required: Yes Tapping Machine Operator Language: [facility] Tapping Machine Operator Name: Toshia [id number] Information Interpreted: non-clinical & clinical Accompanied by: Spouse Allergies No Known Allergies Allergy (Verified 11/15/22 08:19) HPI HPI Comments History of Present Illness Details 52 YO F who is seen in consultation for T2DM at the request of PCP. Initially diagnosed with T2DM in 2007. [place]o [place] Was initially started on treatment with metformin and Trajenta . Current regimen Trulicity 0.75 mg Qwkly metformin 850 mg BID. Lantus 30 units Jardiance 10 mg QD Anamaria download shows she is wearing the sensor 5% of the time. Average glucose is 182. with variability 27.2%. Blood sugars range 60% of the time at 30% hyperglycemia 10% very hyperglycemic and no hypoglycemia . Pattern shows hyperglycemia current post breakfast and post dinner less hypoglycemia Family history of T2DM in mother . 2 sisters have Type 2 DM Has eyes checked yearly, last eye exam 09/2022 , denies retinopathy. Denies neuropathy, not sees podiatry. Denies nephropathy,Not on DOTTY/ARB. . Not Has HLD,Not on statin. Denies CAD. Not Had diabetes education. She is awaiting back surgery pending better glycemic control Co vaginal itching . Also c/o nausea and vomiting worse when starting Trulicity [facility] Medical History Arthritis CAD (coronary artery disease) Fistula HTN (hypertension) Type 2 diabetes mellitus Uncontrolled diabetes mellitus with hyperglycemia Surgical History H/O hemorrhoidectomy History of total abdominal hysterectomy History of appendectomy History of back surgery Social History Patient Tobacco Use Status: Never used Tobacco Physical Exam Vital Signs: Last Vital Signs Pulse 80 11/15/22 08:13 BP 122/88 11/15/22 08:13 BMI result Body Mass Index 30.9 Absence of Cushingoid features. Absence of acromegalic features. Neck exam reveals nl size thyroid about 15 gms. No thyroid nodules palpable. No carotid bruits present. Lungs CTA. Heart S1 S2, Reg R/R. No M/R/ G. Skin exam reveals absence of vitiligo or acanthosis nigricans. Abdominal exam reveals Soft NT/ND with NA BS. No organomegaly present. Neck Other: . Extrem Other: Visual exam of foot performed. No ulcerations or open lesions. No onchomycosis, no callouses.Pulses 2 + distally Sensation intact to monofilament exam. Vibratory sensation sensed isdecreased with 128 Hz tuning fork Results Reviewed Results Reviewed: 11/15/22 08:24 Glucose, Whole Blood Routine Laboratory Last Values Glucose (Clinic) 126 mg/dL (60-115) H 11/15/22 08:24 Assessment & Plan Assessment & Plan (1) Uncontrolled diabetes mellitus with hyperglycemia: Code(s): E11.65 - Type 2 diabetes mellitus with hyperglycemia Plan: This is a 52-year-old male with a history of type 2 diabetes being treated with metformin, Tradjenta and premixed insulin with fair improved glycemic control and no known microvascular or macrovascular complications. Plan is stop Jardiance in light of vaginal itching and was told to call PCP regarding vaginal itching. Pt was told to scan with Anamaria pre and post meals . Would also stop Trulicity in light of vomiting . She should f/u with CDE. Not enough data today to adjust regimen Orders: Orders AMB Hemoglobin A1c Today E11.65 - Type 2 diabetes mellitus with hyperglycemia Medications: Refilled flash glucose sensor (FreeStyle Anamaria 2 Sensor kit) As directed change every 14 days 6 ea 6RF Coding Level of Care Code Est Pt Level 4 (47047) Diagnoses Uncontrolled diabetes mellitus with hyperglycemia E11.65
[2022-11-15 08:13] VITALS: BP 122/88; PULSE 80; BMI 30.9
== END 2022-11-15 08:44 | disposition home or self-care (01) ==
PROVIDERS: PCP Internal Medicine; Visit Provider Internal Medicine Endocrinology, Diabetes & Metabolism
DX: E11.65 Type 2 diabetes mellitus with hyperglycemia (principal)
CPT/HCPCS: 99214

== ENCOUNTER → 2022-11-15 08:09 | Outpatient (BNVA) | payer OTHER, SELFPAY | PROVIDERS: PCP Internal Medicine; Visit Provider Internal Medicine Endocrinology, Diabetes & Metabolism | DX: E11.65 Type 2 diabetes mellitus with hyperglycemia (principal) | CPT/HCPCS: 82947; 83036; 99212 ==

== ENCOUNTER 2022-11-23 10:03 | Outpatient (AMB) | payer OTHER, SELFPAY ==
--- NOTE | 2022-11-23 10:14 | A.OFFVIS_ITS ---
Intake Intake Visit Reasons: Overactive bladder Intake Note: New Patient presents for initial visit for [facility] Urology Medications: none (previously treated with oxybutynin) Blood Thinner: clopidogrel PVR:0ml's Rotary Drier Feeder Required: No Accompanied by: Son and spouse Allergies No Known Allergies Allergy (Verified 11/25/22 20:32) Medication List - Last Reconciled 11/24/22 by ERMIAS LeP- bisoprolol fumarate 5 mg PO DAILY blood sugar diagnostic (Fit with FriendsStyle Test strips) As directed blood-glucose meter (Fit with FriendsStyle [place] Lite kit) As directed cetirizine 10 mg PO DAILY clonazepam 0.5 mg PO BEDTIME PRN clopidogrel 75 mg PO DAILY estradiol 0.01%(0.1mg/gram) vaginally 3 times a week; pea sized amount to urethra 3 times a week 30 days flash glucose scanning reader (Geostellar An[place]aria 2 [place]) As directed flash glucose sensor (Fit with FriendsStyle [place] 2 Sensor kit) As directed change every 14 days gabapentin 100 mg PO BID glucagon 3 mg/actuation (Baqsimi) 3 mg intranasal ONCE insulin glargine (Lantus Solostar U-100 Insulin) 30 units (0.3 mL) subcut DAILY insulin NPH and regular human 100 unit/mL (70-30) (Novolin 70/30 U-100 Insulin) 38 units in the morning and 22 units before supper subcutaneously 2 times a day; lancets (datatrackeryle Lancets) As directed metformin 850 mg PO BID metoclopramide HCl 10 mg PO Q6H PRN mirabegron ER (Myrbetriq) 25 mg PO DAILY 30 days omeprazole 40 mg PO QAM ondansetron HCl 4 mg PO BID PRN pen needle, diabetic (Comfort EZ Pen [place]) As directed inject once a day quetiapine 25 mg PO BEDTIME rabeprazole 20 mg PO DAILY tacrolimus 0.1% topical BID PRN tramadol 50 mg PO Q6H PRN triamcinolone acetonide 0.1% appl topical HPI HPI Comments History of Present Illness Details Mariama is a 52-year-old female patient of Dr. Peterson who was accompanied by her son and her at today's visit. She has a past medical history of uncontrolled diabetes, fistula repair, coronary artery disease, arthritis, and hypertension. In attempt to communicate with the patient util izing allergist/pediatric pulmonologist service via Ipad patient requesting her son to interpret. She presents to the office today as a new patient for ongoing lower urinary tract symptoms. She discusses moving from [facility] a few months ago and has been having ongoing medical issues regarding her bilateral knee pain, lower back pain, uncontrolled diabetes, and lower urinary tract symptoms. She discusses having had recent barium swallow and will be following up with Gastroenterology at [facility] for further assessment evaluation. She discusses feeling bladder pressure/discomfort, urinary urgency, urinary frequency, dysuria, and vaginal itching. Discussed at length importance of managing diabetes for improvement lower urinary tract symptoms as well as overall health and well-being. Discussed bladder triggers/irritants. Discussed and stressed the importance of drinking plenty of water daily. In office urinalysis results reviewed with the patient today. PVR 0 mL. Discussed obtaining retroperitoneal ultrasound for further assessment evaluation. COUNTS INCLUDE 234 BEDS AT THE [facility] Medical History Uncontrolled diabetes mellitus with hyperglycemia Fistula CAD (coronary artery disease) Arthritis HTN (hypertension) Type 2 diabetes mellitus Surgical History H/O hemorrhoidectomy History of total abdominal hysterectomy History of appendectomy History of back surgery Social History Patient Tobacco Use Status: Never used Tobacco Review of Systems Const Reports as per HPI Eyes Details: Patient discusses following up with radio program checker. ENT Reports no additional complaints Card Reports as per HPI Resp Reports no additional complaints GI Reports as per HPI Reports as per HPI Musc Reports as per HPI Endo Reports as per HPI Physical Exam Const General: cooperative, comfortable, no acute distress, well developed, alert and awake Nutritional Appearance: overweight Orientation/consciousness: patient oriented x3 HEENT Head: Yes normal to inspection Ears: hearing grossly normal bilaterally Eyes General: appearance normal, both eyes and all related structures Neck Neck: Yes normal visual inspection and Yes trachea midline Chest Chest palpation & inspection: normal inspection of the chest Resp Effort & Inspection: normal respiratory effort and able to speak in complete sentences Cardio Rate: regular rate GI Inspection: Yes normal to inspection General: Yes no CVA tenderness Back/Spine/Pelvis Back: no CVA tenderness Skin General skin exam: no rashes or lesions noted Neuro General: patient oriented x3 Extrem General: Yes normal to inspection Psych Appearance: grossly normal and well kempt Mental Status: mental status grossly normal Speech and movement: Normal speech and movement present and Clear speech present Affect: normal affect Attitude: cooperative Thought process: Normal thought process present Thought content: Normal thought content present Insight: Fair insight present (Psych) Judgement: Fair judgement present (Psych) Office Procedures Post Void Residual Post Residual Void Post Void Residual (PVR): 0 70040-[id number] Void Residual by ultrasound Results AMB Urinalysis, Automated UA Leukoctes 0 Raul/uL Last Edit by Abazab on 11/23/22 10:38 UA Nitrite Negative Last Edit by Abazab on 11/23/22 10:38 UA Urobilinogen 0.2 mg/dL Last Edit by Abazab on 11/23/22 10:38 UA Protein 0 mg/dL Last Edit by Abazab on 11/23/22 10:38 UA pH 6.0 Last Edit by Abazab on 11/23/22 10:38 UA Blood 0 Dusty/uL Last Edit by Abazab on 11/23/22 10:38 UA Specific Valentines 1.015 Last Edit by Abazab on 11/23/22 10:38 UA Ketone Negative Last Edit by Abazab on 11/23/22 10:38 UA Bilirubin 0 mg/dL Last Edit by Abazab on 11/23/22 10:38 UA Glucose 0 mg/dL Last Edit by Abazab on 11/23/22 10:38 Results Reviewed Results Reviewed: Laboratory Last Values Urine pH (Auto) 6.0 11/23/22 10:21 Specific Valentines (Auto) 1.015 11/23/22 10:21 Urine Protein (Auto) 0 mg/dL 11/23/22 10:21 Glucose (UA)(Auto) 0 mg/dL 11/23/22 10:21 Urine Ketones (Auto) Negative 11/23/22 10:21 Urine Blood (Auto) 0 Dusty/uL 11/23/22 10:21 Urine Nitrite (Auto) Negative 11/23/22 10:21 Urine Bilirubin (Auto) 0 mg/dL 11/23/22 10:21 Urine Urobilinogen (Auto) 0.2 mg/dL 11/23/22 10:21 Leukocyte Esterase (Auto) 0 Raul/uL 11/23/22 10:21 Assessment & Plan Assessment & Plan (1) Lower urinary tract symptoms: Code(s): R39.9 - Unspecified symptoms and signs involving the genitourinary system (2) Urinary urgency: Code(s): R39.15 - Urgency of urination (3) Dysuria: Code(s): R30.0 - Dysuria (4) Vaginal itching: Code(s): N89.8 - Other specified noninflammatory disorders of vagina Plan In office urinalysis results reviewed with the patient today; will send for urine culture. PVR 0 mL. Will obtain retroperitoneal ultrasound for further assessment evaluation. Discussed at length importance of drinking plenty of water daily. Discussed bladder triggers/irritants. Discussed at length importance of managing diabetes for improvement in lower urinary tract symptoms as well as overall health and well-being. Discussed possible near future in office cystoscopy and or urodynamics if symptoms persist and/or worsen Start Myrbetriq as discussed and prescribed. Start Estrace cream as discussed and prescribed. Follow-up in 6 weeks with imaging to be completed prior; or sooner with any issues, concerns, and or questions. Orders: Orders US retroperitoneal comp 11/23/22 R39.9 - Unspecified symptoms and signs involving the genitourinary system AMB Urinalysis Automated 11/23/22 Z13.9 - Encounter for screening, unspecified AMB Post Void Residual by ultrasound 11/23/22 Z13.9 - Encounter for screening, unspecified Urine Culture 11/23/22 R39.9 - Unspecified symptoms and signs involving the genitourinary system Medications: New mirabegron ER (Myrbetriq) 25 mg PO DAILY 30 days 30 tabs 1RF N30.10 - Interstitial cystitis (chronic) without hematuria, N32.81 - Overactive bladder, R35.1 - Nocturia, R39.15 - Urgency of urination estradiol 0.01%(0.1mg/gram) vaginally 3 times a week; pea sized amount to urethra 3 times a week 30 days 42.5 grams 0RF Patient Instructions: The patient had an opportunity to ask questions regarding the treatment plan. All questions were answered. Physical exam, labs, and imaging were discussed and reviewed in detail. As well as risks, benefits, and discussion of treatment choices. No major barriers to understanding were identified. The patient expressed understanding and agreement with the above treatment plan. The patient was made aware they should contact our office by phone for worsening of their current condition, the appearance of new symptoms, or with any questions or concerns. Compliance is encouraged with any medications and follow up testing that is ordered. It is a privilege to be allowed the opportunity to participate in? your urological care.? Again, if you have any questions or concerns If you have any questions or concerns please do not hesitate to contact me. The office is [phone]. This note is constructed using voice recognition software. While every effort has been made to ensure accuracy epic application coordinator errors may have been included. Yours sincerely, RORY Le Coding Level of Care Code New Pt Level 4 (26377) Diagnoses Lower urinary tract symptoms R39.9 Urinary urgency R39.15 Dysuria R30.0 Vaginal itching N89.8 CPT Codes Post Residual Void - PVR CPT Code: 44555-Kxmh Void Residual by ultrasound ([id number])
== END 2022-11-23 11:07 | disposition home or self-care (01) ==
PROVIDERS: PCP Internal Medicine; Visit Provider Nurse Practitioner Family
DX: R39.9 Unspecified symptoms and signs involving the genitourinary system (principal); R39.15 Urgency of urination; R30.0 Dysuria; N89.8 Other specified noninflammatory disorders of vagina
CPT/HCPCS: 99204

== ENCOUNTER 2022-11-23 10:03 | Outpatient (REF) | payer OTHER, SELFPAY | END 2022-11-23 10:04 | disposition home or self-care (01) | LOC: HO.LNP 10:03 | PROVIDERS: PCP Internal Medicine; Visit Provider Nurse Practitioner Family | DX: R39.15 Urgency of urination (principal); R30.0 Dysuria; N89.8 Other specified noninflammatory disorders of vagina; R39.9 Unspecified symptoms and signs involving the genitourinary system | CPT/HCPCS: 51798; 81003; 87086; 87147; 99202 ==

== ENCOUNTER 2022-12-10 11:32 | Outpatient (AMB) | payer OTHER, SELFPAY ==
--- NOTE | 2022-12-10 12:07 | A.OFFVIS_ITS ---
Intake Intake Visit Reasons: dm Licensing And Registration Director Required: Yes Licensing And Registration Director Language: Sinhala Licensing And Registration Director Name: Pt's son Information Interpreted: non-clinical & clinical Accompanied by: Son Allergies No Known Allergies Allergy (Verified 11/25/22 20:32) HPI Comprehensive Diabetes Asmnt Most Recent Diabetes Results: 2 Creatinine 0.79 mg/dL (0.5-1.4) 09/16/22 Blood Urea Nitrogen 10 mg/dL (9-16) 09/16/22 Sodium 139 mmol/L (135-145) 09/16/22 Potassium 4.2 mmol/L (3.3-5.1) 09/16/22 Chloride 105 mmol/L (96-108) 09/16/22 Carbon Dioxide 20 mmol/L (22-29) L 09/16/22 Calcium 9.9 mg/dL (8.4-10.2) 09/16/22 AST 22 U/L (5-31) 10/24/22 ALT 22 U/L (0-31) 10/24/22 Total Protein 7.6 g/dL (6.5-8.0) 10/24/22 Albumin 4.1 g/dL (3.5-5.0) 10/24/22 [facility] Medical History Uncontrolled diabetes mellitus with hyperglycemia Fistula CAD (coronary artery disease) Arthritis HTN (hypertension) Type 2 diabetes mellitus Surgical History H/O hemorrhoidectomy History of total abdominal hysterectomy History of appendectomy History of back surgery Social History Patient Tobacco Use Status: Never used Tobacco Assessment & Plan Assessment & Plan (1) Uncontrolled diabetes mellitus with hyperglycemia: Code(s): E11.65 - Type 2 diabetes mellitus with hyperglycemia Plan: Personal Continuous Glucose Monitor: Patients CGM information reviewed Reviewed patient's sensor data: Hypoglycemia: ? 0% Hyperglycemia:? 81% Time in Range:? 19% Average glucose for the last 2 weeks? 237 mg/dL Patient reports she is having procedure for constricted esophagus, which she believes is what led to her frequent vomiting. She is interested in restarting Trulicity. Spoke with Dr. Morrison, at this time Dr. Morrison recommended that she wait until after her POEM procedure before restarting Trulicity. Dr. Morrison will prescribe Humalog 10 units prior to meals to better control postprandial glucose levels Reviewed with patient and her family action of Humalog. Instructed patient she will be taking Humalog 10 units 15 minutes prior to meals, if she is not eating she will not take Humalog Reviewed with patient and her family how to treat episodes of hypoglycemia with rule of 15s Reviewed how to interpret trend arrows Reminded patient that to check finger sticks if symptoms do not match sensor reading. Discussed lag time between finger stick and sensor data.? Patient able to insert sensor independently at home without issue.? Patient Instructions: Start Humalog 10 units before meals Follow-up with Diabetes Education nurse in 6 weeks DIABETES PROBLEMS HOMECARE INSTRUCTIONS Hypo instructions ? When first signs of insulin reaction occur, immediately drink orange juice or cola, or suck on a sugar cube, but only if the person is conscious. ? Person with diabetes should continue taking insulin when ill, unless he/she is not able to eat.? Regularly check blood sugar or urine for sugar and acetone during illness. ? Exercise regularly. ? Pay special attention to the feet.? Avoid cuts, sores, blisters, ill- fitting shoes, or going barefoot.? Promptly treat injuries to the feet. ? Take medications as directed by physician. ? Drink extra water or noncaffeinated, nonsugared drinks to prevented hydration. Signs and symptoms of low blood sugar (happen quickly) Each person's reaction to low blood sugar is different. Learn your own signs and symptoms of when your blood sugar is low. Taking time to write these symptoms down may help you learn your own symptoms of when your blood sugar is low. From milder, more common indicators to most severe, signs and symptoms of low blood sugar include: Feeling shaky Being nervous or anxious Sweating, chills and clamminess Irritability or impatience Confusion Fast heartbeat Feeling lightheaded or dizzy Hunger Nausea Color draining from the skin (pallor) Feeling Sleepy Feeling weak or having no energy Blurred/impaired vision Tingling or numbness in the lips, tongue, or cheeks Headaches Coordination problems, clumsiness Hypoglycemia or blood glucose under 70 use the rule of 15's: If you have your blood glucose meter test your blood glucose, if you do not have your meter still follow below instruction: Keep quick-sugar foods with you at all times.? Take 15 grams of fast acting carbohydrates. Examples are 4 ounces of fruit juice or regular soda pop, 8 ounces fat-free milk, 1 tablespoon of table sugar, honey or corn syrup, jam, one miniature box of raisins, 7-8 gumdrops or Life Savers candy, 4 glucose tablets, and glucose gel.? Retest blood glucose in 15 minutes, if blood glucose is still under 80,repeat rule of 15's. If blood glucose is under 50, take 30 grams of fast acting carbohydrates If you are having hypoglycemia, or insulin reaction, more that a few times a week, call MD or extension educator F/U BG check Follow up in 6 weeks Coding Level of Care Code Est Pt Level 1 (22462) Diagnoses Uncontrolled diabetes mellitus with hyperglycemia E11.65
== END 2022-12-10 12:12 | disposition home or self-care (01) ==
PROVIDERS: PCP Internal Medicine; Visit Provider Registered Nurse Diabetes Educator
DX: E11.65 Type 2 diabetes mellitus with hyperglycemia (principal)

== ENCOUNTER → 2022-12-10 11:32 | Outpatient (BNVA) | payer OTHER, SELFPAY | PROVIDERS: PCP Internal Medicine; Visit Provider Registered Nurse Diabetes Educator | DX: E11.65 Type 2 diabetes mellitus with hyperglycemia (principal) | CPT/HCPCS: 99211 ==